=== PATIENT | female | born 1940 | race Caucasian/White ===

== ENCOUNTER 2016-05-17 23:07 | Emergency (ER) | payer MEDICARE, OTHER | END 2016-05-18 01:05 | disposition home or self-care (01) | DX: I48.91 Unspecified atrial fibrillation (principal); I48.92 Unspecified atrial flutter; Z79.01 Long term (current) use of anticoagulants; I49.3 Ventricular premature depolarization ==

== ENCOUNTER 2016-07-03 08:00 | Outpatient (CLI) | payer MEDICARE, OTHER | END 2016-07-03 08:01 | disposition home or self-care (01) | DX: R19.7 Diarrhea, unspecified (principal) ==

== ENCOUNTER 2016-07-15 10:30 | Observation (INO) | payer MEDICARE, OTHER ==
[2016-07-15] MEDS ORDERED: DICLOFENAC SODIUM 1% TOP PRN (14:47)
[2016-07-15] MEDS ORDERED: SODIUM CHLORIDE FLUSH 0.9% 10 ML SYRINGE IVP PRN (14:49)
[2016-07-15] MEDS ORDERED: ONDANSETRON ODT 4 MG TABLET TL PRN (14:49)
[2016-07-15] MEDS ORDERED: ACETAMINOPHEN 325 MG TABLET PO PRN (14:49)
[2016-07-15] MEDS ORDERED: BUDESONIDE 0.5 MG/2 ML NEB INH SCH (19:00)
[2016-07-15] MEDS: [UNRECOGNIZED DRUG - OTHER] INH SCH (19:00)
[2016-07-15] MEDS ORDERED: FORMOTEROL FUMARATE NEB 20 MCG/2 ML INH SCH (19:00)
[2016-07-15] MEDS ORDERED: GABAPENTIN 100 MG CAPSULE PO SCH (21:00)
[2016-07-15] MEDS ORDERED: DABIGATRAN 75 MG CAPSULE PO SCH (21:00)
[2016-07-15] MEDS: DABIGATRAN 150 MG CAPSULE PO SCH (21:38)
[2016-07-15] MEDS: cefTRIAXone 1 GM in SODIUM CHLORIDE 0.9% MINIBAG 100 ML IV SCH (23:01)
[2016-07-15] MEDS: SODIUM CHLORIDE FLUSH 0.9% 10 ML SYRINGE IVP SCH (23:07)
[2016-07-16] MEDS: SODIUM CHLORIDE FLUSH 0.9% 10 ML SYRINGE IVP SCH ×2 (05:17→13:09)
[2016-07-16] MEDS: cefTRIAXone 1 GM in SODIUM CHLORIDE 0.9% MINIBAG 100 ML IV SCH (08:39)
[2016-07-16] MEDS: [UNRECOGNIZED DRUG - OTHER] INH SCH (08:43)
[2016-07-16] MEDS: DABIGATRAN 150 MG CAPSULE PO SCH (08:43)
[2016-07-16] MEDS ORDERED: diltiaZEM CD 120 MG CAPSULE PO SCH ×2 (09:00)
[2016-07-16] MEDS ORDERED: POLYETHYLENE GLYCOL 3350 17 GM PACKET PO SCH (09:00)
[2016-07-16] MEDS ORDERED: cefTRIAXone 1 GM in SODIUM CHLORIDE 0.9% MINIBAG 100 ML IV SCH ×2 (09:00→22:00)
[2016-07-16] MEDS ORDERED: guaiFENesin 100 MG/5 ML UDC PO PRN (09:49)
[2016-07-16] MEDS ORDERED: GADOBUTROL 7.5 MMOL/7.5 ML VIAL IVP ONE (11:03)
== END 2016-07-16 14:10 | disposition home or self-care (01) ==
DX: R47.01 Aphasia (principal); I48.2 Chronic atrial fibrillation; I49.3 Ventricular premature depolarization; R82.99 Other abnormal findings in urine; J47.9 Bronchiectasis, uncomplicated; J45.909 Unspecified asthma, uncomplicated; R63.4 Abnormal weight loss; Z79.01 Long term (current) use of anticoagulants; Z68.23 Body mass index [BMI] 23.0-23.9, adult; Z86.73 Personal history of transient ischemic attack (TIA), and cerebral infarction without residual deficits; Z79.899 Other long term (current) drug therapy
CPT/HCPCS: 36415; 70450; 70544; 70549; 70551; 80048; 80061; 81001; 85025; 85610; 85730; 87077; 87086; 87181; 93005; 93010; 93306; 96365; 96366; 99284; 99285; A9270; A9585; G0378

== ENCOUNTER 2016-12-27 08:00 | Outpatient (CLI) | payer MEDICARE, OTHER | END 2016-12-27 08:01 | disposition home or self-care (01) | LOC: LAB.R 08:00 | PROVIDERS: ATTEND Family Medicine | DX: N39.0 Urinary tract infection, site not specified (principal) | CPT/HCPCS: 87086 ==

== ENCOUNTER 2017-02-04 10:00 | Outpatient (CLI) | payer MEDICARE, OTHER | END 2017-02-04 10:01 | disposition home or self-care (01) | LOC: LAB.WCP 10:00 | PROVIDERS: ATTEND Family Medicine | DX: N39.0 Urinary tract infection, site not specified (principal) | CPT/HCPCS: 87077; 87086 ==

== ENCOUNTER 2017-02-23 08:09 | Emergency (ER) | payer MEDICARE, OTHER ==
[2017-02-23] MEDS: SODIUM CHLORIDE 0.9% 1,000 ML IV ONE (08:30)
[2017-02-23 08:40] LABS: BASOPHILS % (AUTO) 0.6 %; EOSINOPHILS # (AUTO) 0.1 10^3/uL (0.0-0.7); EOSINOPHILS % (AUTO) 1.7 %; HCT - HEMATOCRIT 41.4 % (37.0-47.0); HGB - HEMOGLOBIN 13.9 g/dL (12.0-16.0); LYMPHOCYTES # (AUTO) 2.5 10^3/uL (1.5-3.5); LYMPHOCYTES % (AUTO) 38.8 %; MEAN CORPUSCULAR HEMOGLOBIN 33.1 pg (27.0-31.0); MEAN CORPUSCULAR HGB CONC 33.6 g/dL (32.0-36.0); MEAN CORPUSCULAR VOLUME 98.5 fL (81.0-99.0); MEAN PLATELET VOLUME 7.9 fL (7.9-10.8); MONOCYTES # (AUTO) 0.7 10^3/uL (0.0-1.0); MONOCYTES % (AUTO) 11.1 %; NEUTROPHILS # (AUTO) 3.1 10^3/uL (1.5-6.6); NEUTROPHILS % (AUTO) 47.8 %; RED BLOOD COUNT 4.21 10^6/uL (4.20-5.40); RED CELL DISTRIBUTION WIDTH 13.5 % (12.0-15.0); UNCORRECTED WHITE BLOOD COUNT 6.5 x10^3/uL; WHITE BLOOD COUNT 6.5 x10^3/uL (4.8-10.8)
--- NOTE | 2017-02-23 08:54 | ED Physician Documentation ---
PD HPI FOCAL NEURO - Stated complaint Stated Complaint: CONFUSION - Chief complaint Chief Complaint: Neuro - History obtained from History obtained from: Patient, Family - History of Present Illness Timing - onset: Enter time (729), Today Timing - duration: Minutes Timing - details: Abrupt onset, Now resolved Severity of deficit: Moderate Weakness: No: Face, Arm, Hand, Leg, Foot, Right, Left Numbness: No: Face, Arm, Hand, Leg, Foot, Right, Left Associated symptoms: No: Headache, Nausea / vomiting, Seizure, Syncope, Fall, Head injury, Chest pain, Neck pain, Back pain, Fever Contributing factors: positive: Anticoagulated Baseline status: positive: A&OX3, ambulatory, indep Similar symptoms before: Diagnosis (complicated migraine) Recently seen: Clinic (The patient has been treated for UTI and for bronchietiasis in the past month.) - Additional information Additional information: 76-year-old female with a history of atrial fibrillation and complicated migraine has developed symptoms this morning of acute expressive aphasia. Her symptoms have resolved on arrival to the emergency department. Her symptoms started abruptly at 730 this morning. She has had these episodes previously last up to 2 hours and she has had prior admission for TIA related to this. She has had similar symptoms for the past 12 years and has been diagnosed with complicated migraine. She has been recently ill with bronchiectasis and with a urinary tract infection she is finished courses of antibiotics for both of those illnesses and states that she did not feel ill yesterday. Review of Systems Constitutional: denies: Fever, Chills Eyes: denies: Decreased vision Ears: denies: Ear pain Nose: denies: Rhinorrhea / runny nose, Congestion Throat: denies: Sore throat Cardiac: denies: Chest pain / pressure, Palpitations Respiratory: reports: Cough. denies: Dyspnea GI: denies: Abdominal Pain, Nausea, Vomiting : denies: Dysuria, Frequency Musculoskeletal: denies: Neck pain, Back pain, Extremity pain Neurologic: reports: Difficulty speaking. denies: Generalized weakness, Focal weakness, Numbness, Syncope, Seizure, Confused, Altered mental status, Headache , Head injury, LOC PD PAST MEDICAL HISTORY - Past Medical History Past Medical History: Yes Cardiovascular: None Respiratory: Asthma Neuro: TIA, Headache/migraine Endocrine/Autoimmune: None GI: None LEATHER TOOLER: None : None HEENT: None Psych: None Musculoskeletal: Osteoarthritis Derm: None - Past Surgical History Past Surgical History: Yes /LEATHER TOOLER: Hysterectomy HEENT: Tonsil/Adenoidectomy - Present Medications Home Medications: Ambulatory Orders Medication Instructions Recorded Confirmed Diclofenac Sodium [Voltaren] 5 g TP QID PRN 01/26/13 07/15/16 Gabapentin 100 - 300 mg PO QPM 02/13/14 07/15/16 Dabigatran Etexilate Mesylate 150 mg PO BID 05/17/16 07/15/16 [Pradaxa] Budesonide/Formoterol Fumarate 2 puffs INH BID 07/15/16 07/15/16 [Symbicort 160-4.5 Mcg Inhaler] Diltiazem HCl [Cartia Xt] 120 mg PO DAILY 07/15/16 07/15/16 Cephalexin [Keflex] 500 mg PO BID #4 capsule 07/16/16 - Allergies Allergies/Adverse Reactions: Allergies Allergy/AdvReac Type Severity Reaction Status Date / Time No Known Drug Allergies Allergy Verified 02/23/17 08:23 - Social History Does the pt smoke?: No Smoking Status: Never smoker Does the pt drink ETOH?: Yes Does the pt have substance abuse?: No - Immunizations Immunizations are current?: Yes - POLST Patient has POLST: Yes PD ED PE NORMAL - Vitals Vital signs reviewed: Yes (hypertension) - General General: Alert and oriented X 3, No acute distress, Well developed/nourished - HEENT HEENT: Atraumatic, PERRL, EOMI, Ears normal, Pharynx benign, Dentition benign, Other (dry mucous membranes) - Neck Neck: Supple, no meningeal sign, No bony TTP - Cardiac Cardiac: Other (irregularly irregular rate and rhythm) - Respiratory Respiratory: No respiratory distress, Clear bilaterally - Abdomen Abdomen: Soft, Non tender - Back Back: No CVA TTP, No spinal TTP - Derm Derm: Normal color, Warm and dry, No rash - Extremities Extremities: No deformity, No edema - Neuro Neuro: Alert and oriented X 3, director of education 2-12 intact, No motor deficit, No sensory deficit, Normal speech Eye Opening: Spontaneous Motor: Obeys Commands Verbal: Oriented GCS Score: 15 - Psych Psych: Normal mood, Normal affect NIHSS - Time Time: 08:30 - Level of Consciousness Level of consciousness: (0) Alert, Keenly responsive LOC Questions: (0) Answers both Q's correct LOC Commands: (0) Performs both correctly - Gaze Best Gaze: (0) Normal - Visual Visual: (0) No loss - Facial Palsy Facial Palsy: (0) Normal, symmetrical movement - Motor Arms (both separate) Motor Arm (right): (0) No drift Motor Arm (left): (0) No drift - Motor Legs (both separate) Motor Leg (right): (0) No drift Motor Leg (left): (0) No drift - Limb Ataxia Limb Ataxia: (0) Absent - Sensory Sensory: (0) Normal - Best Language Best Language: (0) No aphasia - Dysarthria Dysarthria: (0) Normal - Extinction and Inattention (formally neg Extinction and inattention: (0) No abnormality - Total Score/Results Total Score/Result: 0 Results - Vitals Vitals: Vital Signs - 24 hr 02/23/17 08:21 Temperature 36.0 C L Heart Rate 80 Respiratory 16 Rate Blood Pressure 129/85 H O2 Saturation 100 Oxygen O2 Source Room air - EKG (time done) 0821 Rate: Rate (enter#) (82) Rhythm: Other (irregular sinus) QRS: Low voltage Compare to prior EKG: Changed from prior EKG (SPT 07-15-16 rate has decreased. ) Computer interpretation: Agree with computer - Labs Labs: Laboratory Tests 02/23/17 02/23/17 02/23/17 08:20 08:20 08:20 WBC 6.5 RBC 4.21 Hgb 13.9 Hct 41.4 MCV 98.5 MCH 33.1 H MCHC 33.6 RDW 13.5 Plt Count 220 MPV 7.9 Neut # 3.1 Lymph # 2.5 [place] # 0.7 Eos # 0.1 Baso # 0.0 Absolute Nucleated RBC 0.00 Nucleated RBC % 0.0 Sodium 137 Potassium 4.0 Chloride 102 Carbon Dioxide 25 Anion Gap 10.0 BUN 16 Creatinine 0.9 Estimated GFR (MDRD) 61 L Glucose 127 H Calcium 9.4 Total Bilirubin 0.8 AST 28 ALT 25 Alkaline Phosphatase 45 Troponin I < 0.04 Total Protein 7.1 Albumin 4.0 Globulin 3.1 Albumin/Globulin Ratio 1.3 Lipase 41 Urine Color Urine Clarity Urine pH Ur Specific [place] Urine Protein Urine Glucose (UA) Urine Ketones Urine Occult Blood Urine Nitrite Urine Bilirubin Urine Urobilinogen Ur Leukocyte Esterase Urine RBC Urine WBC Ur Squamous Epith Cells Urine Bacteria Ur Microscopic Review Urine Culture Comments 02/23/17 09:50 WBC RBC Hgb Hct MCV MCH MCHC RDW Plt Count MPV Neut # Lymph # [place] # Eos # Baso # Absolute Nucleated RBC Nucleated RBC % Sodium Potassium Chloride Carbon Dioxide Anion Gap BUN Creatinine Estimated GFR (MDRD) Glucose Calcium Total Bilirubin AST ALT Alkaline Phosphatase Troponin I Total Protein Albumin Globulin Albumin/Globulin Ratio Lipase Urine Color LT. YELLOW Urine Clarity CLEAR Urine pH 6.5 Ur Specific [place] <=1.005 Urine Protein NEGATIVE Urine Glucose (UA) NEGATIVE Urine Ketones NEGATIVE Urine Occult Blood SMALL H Urine Nitrite NEGATIVE Urine Bilirubin NEGATIVE Urine Urobilinogen 0.2 (NORMAL) Ur Leukocyte Esterase TRACE H Urine RBC 0-5 Urine WBC 0-3 Ur Squamous Epith Cells RARE Squamous Urine Bacteria Few Ur Microscopic Review INDICATED Urine Culture Comments INDICATED - Rads (name of study) CT head without Radiology: Prelim report reviewed (Impression: Negative head CT.), EMP read indepedently, See rad report Procedures - IVC sono (time) 0845 Bedside IVC sono: IVC measures (cm) (1.24), IVC collapsed c insp (cm) (complete) , Dehydration (mild est 1 liter down.) PD MEDICAL DECISION MAKING - ED course Complexity details: reviewed old records, reviewed results, re-evaluated patient , considered differential, d/w patient, d/w family ED course: 76 y/o female with a history of complicated migraine has had an episode of aphasia this morning that appears resolved now. She is found to be dehydrated and his hydrated here in the ED with saline by vein. She has no recurrence of symptoms feels normal and has normal workup. She is diagnosed with complicated migraine. Departure - Departure Disposition: 01 Home, Self Care Clinical Impression: Complicated migraine Condition: Stable Instructions: ED Headache Migraine Follow-Up: Krystian Bush DO [Primary Care Provider] -
[2017-02-23 08:57] LABS: ALBUMIN/GLOBULIN RATIO 1.3 (1.0-2.2); BILIRUBIN,TOTAL 0.8 mg/dL (0.2-1.0); CALCIUM 9.4 mg/dL (8.5-10.3); CREATININE 0.9 mg/dL (0.4-1.0); TOTAL PROTEIN 7.1 g/dL (6.7-8.2)
--- NOTE | 2017-02-23 09:48 | CT Preliminary Report ---
Exam: CT HEAD W/O IMPRESSION: Negative head CT. [facility] SITE ID: [id number]
--- NOTE | 2017-02-23 09:50 | CT Report ---
EXAM: CT HEAD EXAM DATE: 02/23/2017 09:34 AM. CLINICAL HISTORY: Aphasia on anticoagulant. COMPARISON: 07/16/2016 MRI brain, 07/15/[address] TECHNIQUE: Multiaxial CT images were obtained from the foramen magnum to the vertex. Reformats: Coron al. IV contrast: None. In accordance with CT protocol optimization, one or more of the following dose reduction techniques w ere utilized for this exam: automated exposure control, adjustment of mA and/or KV based on patient s ize, or use of iterative reconstructive technique. FINDINGS: Parenchyma: No intraparenchymal hemorrhage. No evidence of mass, midline shift, or CT findings of inf arction. Clifton-white differentiation is distinct. Extraaxial Spaces: Normal for age. No subdural or epidural collections identified. Ventricles: Normal in size and position. Sinuses and Orbits: Imaged paranasal sinuses, orbits, and mastoids show no significant abnormality. Bones: No evidence of fracture or calvarial defect. Other: No acute findings or significant interval change compared to the 07/15/[address] IMPRESSION: Negative head CT. [facility] Referring Provider Line: [phone] SITE ID: [id number]
[2017-02-23 10:16] LABS: BILIRUBIN,URINE NEGATIVE (NEGATIVE); PH,URINE 6.5 PH (5.0-7.5)
[2017-02-23 10:24] LABS: UA w/ MICROSCOPIC CHARGE YES
[2017-02-23 10:25] LABS: UR CULTURE IF IND INDICATED; WBC,URINE 0-3 /HPF (0-5)
[2017-02-23 11:16] VITALS: BP 138/78
== END 2017-02-23 11:23 | disposition home or self-care (01) ==
LOC: ED 08:09
DX: G43.109 Migraine with aura, not intractable, without status migrainosus (principal); E86.0 Dehydration; R94.31 Abnormal electrocardiogram [ECG] [EKG]; Z86.73 Personal history of transient ischemic attack (TIA), and cerebral infarction without residual deficits
CPT/HCPCS: 36415; 70450; 80053; 81001; 81003; 83690; 84484; 85025; 87077; 87086; 93005; 96360; 99284

== ENCOUNTER 2017-10-25 07:23 | Outpatient (CLI) | payer MEDICARE, OTHER ==
[2017-10-25 08:08] LABS: BASOPHILS # (AUTO) 0.1 10^3/uL (0.0-0.1); BASOPHILS % (AUTO) 0.9 %; EOSINOPHILS # (AUTO) 0.2 10^3/uL (0.0-0.7); EOSINOPHILS % (AUTO) 3.8 %; HGB - HEMOGLOBIN 13.9 g/dL (12.0-16.0); LYMPHOCYTES # (AUTO) 2.2 10^3/uL (1.5-3.5); LYMPHOCYTES % (AUTO) 34.2 %; MEAN CORPUSCULAR HEMOGLOBIN 33.2 pg (27.0-31.0); MEAN CORPUSCULAR HGB CONC 33.7 g/dL (32.0-36.0); MEAN CORPUSCULAR VOLUME 98.5 fL (81.0-99.0); MONOCYTES # (AUTO) 0.5 10^3/uL (0.0-1.0); MONOCYTES % (AUTO) 8.1 %; NEUTROPHILS # (AUTO) 3.4 10^3/uL (1.5-6.6); PLT - PLATELET COUNT 251 10^3/uL (130-450); RED BLOOD COUNT 4.19 10^6/uL (4.20-5.40); RED CELL DISTRIBUTION WIDTH 12.3 % (12.0-15.0); WHITE BLOOD COUNT 6.4 x10^3/uL (4.8-10.8)
[2017-10-25 08:41] LABS: HB2 TOTAL 14.9 g/dL; HEMOGLOBIN A1C 0.49 g/dL; HEMOGLOBIN A1C % 5.2 % (4.6-6.2)
[2017-10-25 09:06] LABS: ALBUMIN 3.7 g/dL (3.2-5.5); ALBUMIN/GLOBULIN RATIO 1.1 (1.0-2.2); ALKALINE PHOSPHATASE 47 IU/L (42-121); ALT ALANINE AMINOTRANSFERASE 21 IU/L (10-60); AST ASPARTATE AMINOTRANSFERASE 23 IU/L (10-42); BUN - BLOOD UREA NITROGEN 15 mg/dL (6-20); CALCIUM 9.1 mg/dL (8.5-10.3); CARBON DIOXIDE - CO2 28 mmol/L (21-32); CHLORIDE 103 mmol/L (101-111); CHOL/HDL RATIO 2.9 (<4.4); CHOLESTEROL 214 mg/dL; CREATININE 0.7 mg/dL (0.4-1.0); GFR - MDRD 81 (>89); GLUCOSE 99 mg/dL (70-100); HDL CHOLESTEROL 74 mg/dL; LDL CHOLESTEROL,CALCULATED 121 mg/dL; LDL/HDL RATIO 1.6 (<4.4); SODIUM 136 mmol/L (135-145); VLDL CHOLESTEROL 19 mg/dL
== END 2017-10-25 07:24 | disposition home or self-care (01) ==
LOC: LAB 07:23
PROVIDERS: ATTEND Family Medicine
DX: Z00.00 Encounter for general adult medical examination without abnormal findings (principal); R73.01 Impaired fasting glucose
CPT/HCPCS: 36415; 80053; 80061; 83036; 83721; 84443; 85025

== ENCOUNTER 2018-05-05 12:49 | Outpatient (CLI) | payer MEDICARE, OTHER ==
--- NOTE | 2018-05-08 09:27 | DEXA Report ---
Reason: BONE DISORDER Procedure Date: 05/05/2018 Accession Number: [id number] / [id number] Procedure: DEX - Dexa Spine and/or Hip CPT Code: FULL RESULT: EXAM: Dexa Spine and/or Hip DATE: 05/05/2018 2:01 PM CLINICAL HISTORY: BONE DISORDER TECHNIQUE: Dual energy x-ray absorptiometry (DXA) was performed on a [facility]. Regions measured are the AP Spine, femoral neck, and if needed forearm. COMPARISON: 03/26/2016. In accordance with the International Society for Clinical Densitometry (ISCD) guidelines, data from previous exams may be reanalyzed using current recommendations and techniques. This is done to allow a more accurate basis for comparison with the current study. FINDINGS: The data for the lumbar spine is as follows: BMD (g/cm/cm) T-SCORE Z-SCORE REGION L1 0.837 -2.4 -0.7 L2 0.983 -1.8 -0.1 L3 1.123 -0.6 1.1 L4 1.082 -1.0 0.7 TOTAL 1.015 -1.4 0.3 NOTE: All evaluable vertebrae are used for classification The data for the hip is as follows: BMD (g/cm/cm) T-SCORE Z-SCORE REGION Neck 0.945 -0.7 1.4 TOTAL 0.741 -2.1 -0.2 NOTE: The femoral neck or total proximal femur, whichever is lowest, is used for classification. DXA RESULTS SUMMARY: Spine SCAN DATE AGE BMD CHANGE VS CHANGE VS PREVIOUS PREVIOUS % [birth year]05[birth year]2018 [age] 1.015 0.044* 4.5* 03/26/2016 [age] 0.971 * Denotes significant change at the 95% confidence level. Denotes dissimilar scan types or analysis methods. DXA RESULTS SUMMARY: Hip SCAN DATE AGE BMD CHANGE VS CHANGE VS PREVIOUS PREVIOUS % [birth year]05[birth year]2018 78.0 0.741 -0.064* -8.0* 03[birth year]26/2016 [age] 0.805 * Denotes significant change at the 95% confidence level. Denotes dissimilar scan types or analysis methods. IMPRESSION: THE WHO CLASSIFICATION BASED ON THE INTERNATIONAL REFERENCE STANDARD IS OSTEOPENIA. THE FRACTURE RISK IS INCREASED. RECOMMENDATION: Patients with diagnosis of osteoporosis or osteopenia should have regular bone mineral density assessment. For those eligible for Medicare, routine testing is allowed once every 2 years. Testing frequency can be increased for patients who have rapidly progressing disease or for those who are receiving medical therapy to restore bone mass. COMMENT: World Health Organization (WHO) definitions for osteoporosis and osteopenia: NORMAL BMD: T-score at -1.0 or higher, fracture risk is low OSTEOPENIA BMD: T-score between -1.0 and -2.5, fracture risk is increased. OSTEOPOROSIS BMD: T-score at -2.5 or lower, fracture risk is high. National Osteoporosis Foundation recommends: 1. Obtain adequate dietary calcium (at least 1200 mg per day) and vitamin D (400-800 international units per day). 2. Participate, as appropriate, in regular weightbearing and muscle-strengthening exercise. 3. Avoid tobacco use and reduce alcohol and caffeine intake. 4. For more detailed information see the website at www.NOF.org.
== END 2018-05-05 12:50 | disposition home or self-care (01) ==
LOC: DI 12:49
PROVIDERS: ATTEND Family Medicine
DX: M85.89 Other specified disorders of bone density and structure, multiple sites (principal)
CPT/HCPCS: 77080

== ENCOUNTER 2018-05-05 12:50 | Outpatient (CLI) | payer MEDICARE, OTHER ==
--- NOTE | 2018-05-08 08:54 | Mammography Report ---
Reason: SCREENING MAMMOGRAM Procedure Date: 05/05/2018 Accession Number: [id number] / [id number] Procedure: OBEY - Screening Mammo Impl w/Chris CPT Code: FULL RESULT: EXAM: Screening Mammo Impl w/Chris DATE: 05/05/2018 12:50 PM CLINICAL HISTORY: Screening encounter. History of bilateral breast implants. TECHNIQUE: Bilateral CC and MLO views were obtained in standard and implant displaced fashion. COMPARISON: 03/26/2016 through 02/18/2009. FINDINGS: The breasts demonstrate diffuse fatty replacement bilaterally. Bilateral saline implants remain intact. No suspicious masses, clustered microcalcifications, or regions of architectural distortion are identified. IMPRESSION: Benign findings RECOMMENDATION: Routine annual screening unless otherwise clinically indicated. BIRADS CATEGORY 2: Benign findings STANDARD QUALIFYING STATEMENTS: 1. This examination was not reviewed with the aid of Computer-Aided Detection (CAD). 2. A negative or benign imaging report should not preclude biopsy if clinically suspicious findings are present. 3. Dense breasts may obscure an underlying neoplasm. 4. This examination was reviewed with the aid of 3D breast imaging (tomosynthesis).
== END 2018-05-05 12:51 | disposition home or self-care (01) ==
LOC: DI 12:50
DX: Z12.31 Encounter for screening mammogram for malignant neoplasm of breast (principal); Z98.82 Breast implant status
CPT/HCPCS: 77063; 77067

== ENCOUNTER 2018-06-19 11:34 | Outpatient (CLI) | payer MEDICARE, OTHER ==
--- NOTE | 2018-06-19 14:52 | XRAY Report ---
Reason: HIP PAIN, LEFT Procedure Date: 06/19/2018 Accession Number: [id number] / [id number] Procedure: WCP - Hip w/Pelvis 2-3V LT CPT Code: FULL RESULT: EXAM: LEFT HIP RADIOGRAPHY EXAM DATE: 06/19/2018 11:49 AM. CLINICAL HISTORY: Chronic left hip pain. No known injury. COMPARISON: None. TECHNIQUE: 2 views. FINDINGS: Bones: Normal. No fractures or bone lesion. Joints: There is asymmetric degenerative joint space narrowing of the left hip. There is mild subchondral sclerosis of the weightbearing surface of the acetabulum and moderate marginal osteophyte of the femoral head. Soft Tissues: Normal. No soft tissue swelling. Incidental note is made of a pessary device overlying the midline. 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 No fracture appreciated. [facility]
== END 2018-06-19 11:35 | disposition home or self-care (01) ==
LOC: DI.WCP 11:34
PROVIDERS: ATTEND Family Medicine
DX: M16.12 Unilateral primary osteoarthritis, left hip (principal)

== ENCOUNTER 2018-06-29 09:46 | Emergency (ER) | payer MEDICARE, OTHER ==
--- NOTE | 2018-06-29 10:10 | ED Physician Documentation ---
History of Present Illness - Stated complaint Stated Complaint: VOMITING/WEAKNESS - Chief complaint Chief Complaint: General - History obtained from History obtained from: Patient - History of Present Illness Timing: Today - Additonal information Additional information: 78-year-old female with a feeling of uneasiness that she has had yesterday and today. She indicates that she has undergone a lot of stress in the past 2 months when her brother in April. She has had difficulty since that time. She has a prior history of urinary tract infection she is not specifically having symptoms now. Review of Systems Constitutional: reports: Chills, Fatigue. denies: Fever Eyes: denies: Decreased vision Ears: denies: Ear pain Nose: denies: Rhinorrhea / runny nose, Congestion Throat: denies: Sore throat Cardiac: denies: Chest pain / pressure, Palpitations Respiratory: denies: Dyspnea, Cough GI: reports: Nausea. denies: Abdominal Pain, Vomiting, Constipation, Diarrhea : denies: Dysuria, Frequency Skin: denies: Rash Musculoskeletal: denies: Neck pain, Back pain, Extremity pain Neurologic: denies: Generalized weakness, Focal weakness, Numbness PD PAST MEDICAL HISTORY - Past Medical History Cardiovascular: None Respiratory: Asthma Endocrine/Autoimmune: None GI: None POLICEWOMAN: None : None HEENT: None Psych: None Musculoskeletal: Osteoarthritis Derm: None - Past Surgical History Past Surgical History: Yes /POLICEWOMAN: Hysterectomy HEENT: Tonsil/Adenoidectomy - Present Medications Home Medications: Ambulatory Orders Medication Instructions Recorded Confirmed Diclofenac Sodium [Voltaren] 5 g TP QID PRN 01/26/13 07/15/16 Gabapentin 100 - 300 mg PO QPM 02/13/14 07/15/16 Dabigatran Etexilate Mesylate 150 mg PO BID 05/17/16 07/15/16 [Pradaxa] Budesonide/Formoterol Fumarate 2 puffs INH BID 07/15/16 07/15/16 [Symbicort 160-4.5 Mcg Inhaler] Diltiazem HCl [Cartia Xt] 120 mg PO DAILY 07/15/16 07/15/16 Cephalexin [Keflex] 500 mg PO BID #4 capsule 07/16/16 Nitrofurantoin Monohyd/M-Cryst 100 mg PO BID #10 capsule 06/29/18 [Macrobid 100 mg Capsule] traZODone [Desyrel] 50 mg PO HS #30 tablet 06/29/18 - Allergies Allergies/Adverse Reactions: Allergies Allergy/AdvReac Type Severity Reaction Status Date / Time No Known Drug Allergies Allergy Verified 06/29/18 10:02 - Social History Does the pt smoke?: No Smoking Status: Never smoker Does the pt drink ETOH?: Yes Does the pt have substance abuse?: No - Immunizations Immunizations are current?: Yes - POLST Patient has POLST: Yes PD ED PE NORMAL - Vitals Vital signs reviewed: Yes - General General: Alert and oriented X 3, Well developed/nourished, Other (The patient has some emotional lability) - HEENT HEENT: Atraumatic, PERRL, EOMI, Other (dry mucous membranes ) - Neck Neck: Supple, no meningeal sign, No bony TTP - Cardiac Cardiac: RRR, Other (2/6 holosystolic murmer at LSB radiating across the chest is best heard from the back. 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 ) Computer interpretation: Agree with computer - Labs Labs: Laboratory Tests 06/29/18 06/29/18 06/29/18 10:30 10:30 10:30 WBC 5.6 RBC 4.15 L Hgb 13.8 Hct 40.5 MCV 97.6 MCH 33.2 H MCHC 34.1 RDW 13.0 Plt Count 247 MPV 8.3 Neut # (Auto) 3.3 Lymph # (Auto) 1.7 [place] # (Auto) 0.5 Eos # (Auto) 0.1 Baso # (Auto) 0.0 Absolute Nucleated RBC 0.00 Nucleated RBC % 0.1 Sodium 135 Potassium 3.8 Chloride 104 Carbon Dioxide 23 Anion Gap 8.0 BUN 13 Creatinine 0.7 Estimated GFR (MDRD) 81 L Glucose 136 H Calcium 9.3 Total Bilirubin 1.0 AST 29 ALT 19 Alkaline Phosphatase 44 Troponin I < 0.04 Total Protein 7.0 Albumin 4.1 Globulin 2.9 Albumin/Globulin Ratio 1.4 Lipase 39 Urine Color Urine Clarity Urine pH Ur Specific [place] Urine Protein Urine Glucose (UA) Urine Ketones Urine Occult Blood Urine Nitrite Urine Bilirubin Urine Urobilinogen Ur Leukocyte Esterase Urine RBC Urine WBC Ur Squamous Epith Cells Urine Bacteria Ur Microscopic Review Urine Culture Comments 06/29/18 11:53 WBC RBC Hgb Hct MCV MCH MCHC RDW Plt Count MPV Neut # (Auto) Lymph # (Auto) [place] # (Auto) Eos # (Auto) Baso # (Auto) Absolute Nucleated RBC Nucleated RBC % Sodium Potassium Chloride Carbon Dioxide Anion Gap BUN Creatinine Estimated GFR (MDRD) Glucose Calcium Total Bilirubin AST ALT Alkaline Phosphatase Troponin I Total Protein Albumin Globulin Albumin/Globulin Ratio Lipase Urine Color YELLOW Urine Clarity CLEAR Urine pH 7.5 Ur Specific [place] 1.010 Urine Protein NEGATIVE Urine Glucose (UA) NEGATIVE Urine Ketones NEGATIVE Urine Occult Blood TRACE-INTA Urine Nitrite POSITIVE H Urine Bilirubin NEGATIVE Urine Urobilinogen 0.2 (NORMAL) Ur Leukocyte Esterase SMALL H Urine RBC 0-5 Urine WBC >25 H Ur Squamous Epith Cells NONE SEEN Urine Bacteria Many H Ur Microscopic Review INDICATED Urine Culture Comments INDICATED - Rads (name of study) chest 2 view Radiology: Prelim report reviewed (Impression: 1. Mild cardiomegaly, as before. 2. Lungs are clear.), EMP read indepedently, See rad report Procedures - IVC sono (time) 1010 Bedside IVC sono: IVC measures (cm) (1.27), IVC collapsed c insp (cm) (complete), Dehydration (est 500ml deficit) PD MEDICAL DECISION MAKING - ED course Complexity details: reviewed results, re-evaluated patient, considered differential, d/w patient, d/w family ED course: 78-year-old female with a feeling of uneasiness has urinary tract infection on evaluation of the urinary sediment and the urine specimen looks like a good uncontaminated specimen the base the grade for culture. She is administered intravenous saline and Rocephin. She has discussed her difficulty with sleep and would like to try some trazodone after discussion of its benefits for sleep. Departure - Departure Disposition: 01 Home, Self Care Clinical Impression: Urinary tract infection Qualifiers: Urinary tract infection type: acute cystitis Hematuria presence: without hematuria Qualified Code(s): N30.00 - Acute cystitis without hematuria Insomnia Qualifiers: Insomnia type: other insomnia Qualified Code(s): G47.09 - Other insomnia Condition: Stable Instructions: ED UTI Cystitis Female, ED Insomnia, ED Stress React Follow-Up: Krystian Bush DO [Primary Care Provider] - Prescriptions: Nitrofurantoin Monohyd/M-Cryst [Macrobid 100 mg Capsule] 100 mg PO BID #10 capsule traZODone [Desyrel] 50 mg PO HS #30 tablet
[2018-06-29] MEDS ORDERED: SODIUM CHLORIDE 0.9% 500 ML IV ONE (10:40)
[2018-06-29 10:59] LABS: BASOPHILS % (AUTO) 0.9 %; EOSINOPHILS # (AUTO) 0.1 10^3/uL (0.0-0.7); EOSINOPHILS % (AUTO) 1.6 %; HGB - HEMOGLOBIN 13.8 g/dL (12.0-16.0); LYMPHOCYTES # (AUTO) 1.7 10^3/uL (1.5-3.5); LYMPHOCYTES % (AUTO) 29.6 %; MEAN CORPUSCULAR HEMOGLOBIN 33.2 pg (27.0-31.0); MEAN CORPUSCULAR HGB CONC 34.1 g/dL (32.0-36.0); MEAN CORPUSCULAR VOLUME 97.6 fL (81.0-99.0); MEAN PLATELET VOLUME 8.3 fL (7.9-10.8); MONOCYTES # (AUTO) 0.5 10^3/uL (0.0-1.0); MONOCYTES % (AUTO) 8.9 %; NEUTROPHILS # (AUTO) 3.3 10^3/uL (1.5-6.6); PLT - PLATELET COUNT 247 10^3/uL (130-450); RED BLOOD COUNT 4.15 10^6/uL (4.20-5.40); WHITE BLOOD COUNT 5.6 x10^3/uL (4.8-10.8)
[2018-06-29 11:09] LABS: ALBUMIN 4.1 g/dL (3.2-5.5); ALBUMIN/GLOBULIN RATIO 1.4 (1.0-2.2); CALCIUM 9.3 mg/dL (8.5-10.3); CREATININE 0.7 mg/dL (0.4-1.0)
--- NOTE | 2018-06-29 11:15 | XRAY Report ---
Reason: chest pain Procedure Date: 06/29/2018 Accession Number: [id number] / [id number] Procedure: XR - Chest 1 View X-Ray CPT Code: 14361 FULL RESULT: EXAM: CHEST RADIOGRAPHY EXAM DATE: 06/29/2018 10:52 AM. CLINICAL HISTORY: Chest pain. COMPARISON: CHEST 2 VIEW PA/LAT 05/17/2016 11:36 PM. TECHNIQUE: Upright AP view. FINDINGS: Lungs/Pleura: No focal opacities evident. No pleural effusion. No pneumothorax. Mediastinum: Mild cardiomegaly, as before. Other: Bilateral breast implants. IMPRESSION: 1. Mild cardiomegaly, as before. 2. Lungs are clear. [facility]
[2018-06-29 12:01] LABS: BILIRUBIN,URINE NEGATIVE (NEGATIVE); GLUCOSE, URINE (UA) NEGATIVE (NEGATIVE); KETONES,URINE (UA) NEGATIVE (NEGATIVE); LEUKOCYTE ESTERASE, URINE SMALL (NEGATIVE); NITRITE,URINE POSITIVE (NEGATIVE); OCCULT BLOOD,URINE TRACE-INTA (NEGATIVE); PH,URINE 7.5 PH (5.0-7.5); PROTEIN,URINE NEGATIVE (NEGATIVE); UROBILINOGEN,URINE 0.2 (NORMAL) E.U./dL (NORMAL)
[2018-06-29 12:05] LABS: CLARITY,URINE CLEAR (CLEAR)
[2018-06-29 12:11] LABS: BACTERIA,URINE Many /HPF (None Seen); RBC,URINE 0-5 /HPF (0-5); SQUAMOUS EPITHELIAL CELL,UR NONE SEEN (<= Few)
[2018-06-29] MEDS ORDERED: cefTRIAXone 1 GM in SODIUM CHLORIDE 0.9% MINIBAG 100 ML IV STA (12:14)
[2018-06-29 12:52] VITALS: BP 116/70
== END 2018-06-29 13:28 | disposition home or self-care (01) ==
LOC: ED 09:46
DX: N30.00 Acute cystitis without hematuria (principal); G47.09 Other insomnia; E86.0 Dehydration; R00.0 Tachycardia, unspecified
CPT/HCPCS: 36415; 71045; 80053; 81001; 81003; 83690; 84484; 85025; 87077; 87086; 87181; 93005; 96361; 96365; 99283

== ENCOUNTER 2019-03-01 08:00 | Outpatient (CLI) | payer MEDICARE, OTHER | END 2019-03-01 23:59 | disposition home or self-care (01) | LOC: LAB.WCP 08:00 | PROVIDERS: ATTEND Family Medicine | DX: Z95.2 Presence of prosthetic heart valve (principal); I48.0 Paroxysmal atrial fibrillation; Z79.01 Long term (current) use of anticoagulants ==

== ENCOUNTER 2019-03-05 08:00 | Outpatient (CLI) | payer MEDICARE, OTHER | END 2019-03-05 23:59 | disposition home or self-care (01) | LOC: LAB.WCP 08:00 | PROVIDERS: ATTEND Family Medicine | DX: Z79.01 Long term (current) use of anticoagulants (principal); Z95.2 Presence of prosthetic heart valve; I48.0 Paroxysmal atrial fibrillation ==

== ENCOUNTER 2019-03-12 08:00 | Outpatient (CLI) | payer MEDICARE, OTHER | END 2019-03-12 23:59 | disposition home or self-care (01) | LOC: LAB.WCP 08:00 | PROVIDERS: ATTEND Family Medicine | DX: Z79.01 Long term (current) use of anticoagulants (principal); Z95.2 Presence of prosthetic heart valve ==

== ENCOUNTER 2019-03-19 08:00 | Outpatient (CLI) | payer MEDICARE, OTHER | END 2019-03-19 23:59 | disposition home or self-care (01) | LOC: LAB.WCP 08:00 | PROVIDERS: ATTEND Family Medicine | DX: I48.0 Paroxysmal atrial fibrillation (principal); Z79.01 Long term (current) use of anticoagulants ==

== ENCOUNTER 2019-03-26 08:00 | Outpatient (CLI) | payer MEDICARE, OTHER | END 2019-03-26 23:59 | disposition home or self-care (01) | LOC: LAB.WCP 08:00 | PROVIDERS: ATTEND Nurse Practitioner Family | DX: I48.0 Paroxysmal atrial fibrillation (principal); Z79.01 Long term (current) use of anticoagulants; Z95.2 Presence of prosthetic heart valve ==

== ENCOUNTER 2019-04-02 08:00 | Outpatient (CLI) | payer MEDICARE, OTHER | END 2019-04-02 23:59 | disposition home or self-care (01) | LOC: LAB.WCP 08:00 | PROVIDERS: ATTEND Family Medicine | DX: I48.0 Paroxysmal atrial fibrillation (principal); Z79.01 Long term (current) use of anticoagulants; Z95.2 Presence of prosthetic heart valve ==

== ENCOUNTER 2019-04-10 08:00 | Outpatient (CLI) | payer MEDICARE, OTHER | END 2019-04-10 23:59 | disposition home or self-care (01) | LOC: LAB.WCP 08:00 | PROVIDERS: ATTEND Nurse Practitioner Family | DX: Z79.01 Long term (current) use of anticoagulants (principal); I48.0 Paroxysmal atrial fibrillation; Z95.2 Presence of prosthetic heart valve ==

== ENCOUNTER 2019-04-24 08:00 | Outpatient (CLI) | payer MEDICARE, OTHER | END 2019-04-24 23:59 | disposition home or self-care (01) | LOC: LAB.WCP 08:00 | PROVIDERS: ATTEND Family Medicine | DX: Z79.01 Long term (current) use of anticoagulants (principal); I48.0 Paroxysmal atrial fibrillation; Z95.2 Presence of prosthetic heart valve ==

== ENCOUNTER 2019-05-11 08:00 | Outpatient (CLI) | payer MEDICARE, OTHER | END 2019-05-11 23:59 | disposition home or self-care (01) | LOC: LAB.WCP 08:00 | PROVIDERS: ATTEND Family Medicine | DX: I48.0 Paroxysmal atrial fibrillation (principal); Z79.01 Long term (current) use of anticoagulants; Z95.2 Presence of prosthetic heart valve ==

== ENCOUNTER 2019-05-22 08:00 | Outpatient (CLI) | payer MEDICARE, OTHER | END 2019-05-22 23:59 | disposition home or self-care (01) | LOC: LAB.WCP 08:00 | PROVIDERS: ATTEND Family Medicine | DX: I48.0 Paroxysmal atrial fibrillation (principal); Z79.01 Long term (current) use of anticoagulants ==

== ENCOUNTER 2019-06-04 11:53 | Outpatient (CLI) | payer MEDICARE, OTHER ==
[2019-06-04 12:39] LABS: CALCIUM 9.2 mg/dL (8.5-10.3); CREATININE 0.8 mg/dL (0.4-1.0)
== END 2019-06-04 11:54 | disposition home or self-care (01) ==
LOC: LAB 11:53
PROVIDERS: ATTEND Internal Medicine Cardiovascular Disease
DX: I50.22 Chronic systolic (congestive) heart failure (principal)
CPT/HCPCS: 36415; 80048

== ENCOUNTER 2019-06-04 19:17 | Emergency (ER) | payer MEDICARE, OTHER ==
[2019-06-04 21:00] LABS: BASOPHILS % (AUTO) 0.4 %; EOSINOPHILS # (AUTO) 0.1 10^3/uL (0.0-0.7); EOSINOPHILS % (AUTO) 1.9 %; MEAN CORPUSCULAR HEMOGLOBIN 31.9 pg (27.0-31.0); MEAN CORPUSCULAR HGB CONC 33.2 g/dL (32.0-36.0); MEAN CORPUSCULAR VOLUME 96.1 fL (81.0-99.0); MONOCYTES # (AUTO) 0.7 10^3/uL (0.0-1.0); MONOCYTES % (AUTO) 9.2 %; NEUTROPHILS # (AUTO) 4.4 10^3/uL (1.5-6.6); NEUTROPHILS % (AUTO) 60.1 %; PLT - PLATELET COUNT 280 10^3/uL (130-450); RED BLOOD COUNT 4.07 10^6/uL (4.20-5.40); RED CELL DISTRIBUTION WIDTH 12.9 % (12.0-15.0); WHITE BLOOD COUNT 7.3 x10^3/uL (4.8-10.8)
[2019-06-04 21:06] LABS: INR 2.7 (0.8-1.2); PT - PROTHROMBIN TIME 28.6 secs (9.9-12.6)
[2019-06-04 21:12] LABS: ALBUMIN/GLOBULIN RATIO 1.5 (1.0-2.2); BILIRUBIN,TOTAL 0.3 mg/dL (0.2-1.0); TOTAL PROTEIN 6.6 g/dL (6.7-8.2)
--- NOTE | 2019-06-04 21:16 | XRAY Report ---
Reason: Chest Pain Procedure Date: 06/04/2019 Accession Number: [id number] / [id number] Procedure: XR - Chest 1 View X-Ray CPT Code: 83044 Final Report FULL RESULT: EXAM: CHEST RADIOGRAPHY EXAM DATE: 06/04/2019 08:51 PM. CLINICAL HISTORY: Chest Pain. COMPARISON: CHEST 1 VIEW 06/29/2018 10:39 AM. TECHNIQUE: 1 view. FINDINGS: Lungs/Pleura: Slight prominence of perihilar interstitium, suggestive of interstitial pulmonary edema. Mild biapical pleural parenchymal scarring noted. No focal opacities evident. No pleural effusion. No pneumothorax. Mediastinum: Moderately enlarged cardiomediastinal silhouette with cardiac device. Other: Bilateral breast implants noted. IMPRESSION: Slight prominence of bilateral perihilar interstitium suggestive of interstitial pulmonary edema. Moderately enlarged cardiomediastinal silhouette. [facility]
--- NOTE | 2019-06-04 21:43 | ED Physician Documentation ---
PD HPI DYSPNEA - Stated complaint Stated Complaint: DIFFICULTY BREATHING - NEW HEART MEDS - Chief complaint Chief Complaint: Cardiac - History obtained from History obtained from: Patient, Family - History of Present Illness Timing - onset: Other (2 weeks ago) Timing - details: Gradual onset - Additional information Additional information: 79 year old female with hx of CABG, valvular replacement, chronic systolic heart failure with EF of 25%, who presents to the emergency department with fatigue over the last 2 weeks. Patient was placed on Amiodarone, Aldactone, Metoprolol by her client service executive, Dr. Gaviria about 2 weeks ago and she has been feeling tired and fatigue. She goes to cardiac rehab and has been feeling tired during her rehab. She was told by her 13 year grand-daughter that she was breathing differently and heavily tonight. She was concerned of possible interactions with her medications. She also takes sertaline for anxiety and trazadone for sleep. She denies chest pain, an increase in lower extremity edema. Review of Systems Constitutional: denies: Fever, Chills Eyes: denies: Loss of vision, Decreased vision, Photophobia Ears: denies: Loss of hearing, Ear pain, Drainage/discharge Nose: denies: Rhinorrhea / runny nose Throat: denies: Dental pain / toothache, Sore throat Cardiac: denies: Chest pain / pressure Respiratory: denies: Dyspnea, Cough GI: denies: Abdominal Pain, Nausea, Vomiting Musculoskeletal: denies: Neck pain, Back pain Neurologic: reports: Other (fatigue). denies: Focal weakness PD PAST MEDICAL HISTORY - Past Medical History Cardiovascular: Congestive heart failure Respiratory: Asthma Endocrine/Autoimmune: None GI: None BACK FACER: None : None HEENT: None Psych: None Musculoskeletal: Osteoarthritis Derm: None - Past Surgical History Past Surgical History: Yes /BACK FACER: Hysterectomy HEENT: Tonsil/Adenoidectomy - Present Medications Home Medications: Ambulatory Orders Medication Instructions Recorded Confirmed Diclofenac Sodium [Voltaren] 5 g TP QID PRN 01/26/13 07/15/16 Gabapentin 100 - 300 mg PO QPM 02/13/14 07/15/16 Dabigatran Etexilate Mesylate 150 mg PO BID 05/17/16 07/15/16 [Pradaxa] Budesonide/Formoterol Fumarate 2 puffs INH BID 07/15/16 07/15/16 [Symbicort 160-4.5 Mcg Inhaler] Diltiazem HCl [Cartia Xt] 120 mg PO DAILY 07/15/16 07/15/16 Cephalexin [Keflex] 500 mg PO BID #4 capsule 07/16/16 Nitrofurantoin Monohyd/M-Cryst 100 mg PO BID #10 capsule 06/29/18 [Macrobid 100 mg Capsule] traZODone [Desyrel] 50 mg PO HS #30 tablet 06/29/18 - Allergies Allergies/Adverse Reactions: Allergies Allergy/AdvReac Type Severity Reaction Status Date / Time adhesive Allergy Unknown Verified 06/05/19 08:28 mold Allergy Unknown Verified 06/05/19 08:28 Yeast Allergy Unknown Verified 06/05/19 08:28 - Social History Does the pt smoke?: No Smoking Status: Never smoker Does the pt drink ETOH?: Yes Does the pt have substance abuse?: No - Immunizations Immunizations are current?: Yes - POLST Patient has POLST: Yes PD ED PE NORMAL - Vitals Vital signs reviewed: Yes - General General: Alert and oriented X 3 - HEENT HEENT: Atraumatic - Neck Neck: Supple, no meningeal sign - Cardiac Cardiac: No murmur - Respiratory Respiratory: No respiratory distress, Clear bilaterally - Abdomen Abdomen: Normal bowel sounds, Soft - Extremities Extremities: No deformity - Neuro Neuro: Alert and oriented X 3, information security specialist 2-12 intact, No motor deficit, No sensory deficit, Normal speech Eye Opening: Spontaneous Motor: Obeys Commands Verbal: Oriented GCS Score: 15 Results - Vitals Vitals: Oxygen O2 Source Room air - EKG (time done) 2058 Rate: Rate (enter#) (68) [place]: Normal Intervals: Normal [place] QRS: Normal Ischemia: Non specific changes (sinus arrhythmia. poor r wave progression) - Labs Labs: Laboratory Tests 06/04/19 06/04/19 06/04/19 20:51 20:51 20:51 WBC 7.3 RBC 4.07 L Hgb 13.0 Hct 39.1 MCV 96.1 MCH 31.9 H MCHC 33.2 RDW 12.9 Plt Count 280 MPV 9.0 Neut # (Auto) 4.4 Lymph # (Auto) 2.0 [place] # (Auto) 0.7 Eos # (Auto) 0.1 Baso # (Auto) 0.0 Absolute Nucleated RBC 0.00 Nucleated RBC % 0.0 PT 28.6 H INR 2.7 H Sodium 130 L Potassium 4.3 Chloride 97 L Carbon Dioxide 25 Anion Gap 8.0 BUN 20 Creatinine 1.0 Estimated GFR (MDRD) 53 L Glucose 105 H Calcium 9.0 Total Bilirubin 0.3 AST 22 ALT 26 Alkaline Phosphatase 41 L Troponin I High Sens B-Natriuretic Peptide Total Protein 6.6 L Albumin 4.0 Globulin 2.6 Albumin/Globulin Ratio 1.5 Lipase 53 H 06/04/19 06/04/19 20:51 20:51 WBC RBC Hgb Hct MCV MCH MCHC RDW Plt Count MPV Neut # (Auto) Lymph # (Auto) [place] # (Auto) Eos # (Auto) Baso # (Auto) Absolute Nucleated RBC Nucleated RBC % PT INR Sodium Potassium Chloride Carbon Dioxide Anion Gap BUN Creatinine Estimated GFR (MDRD) Glucose Calcium Total Bilirubin AST ALT Alkaline Phosphatase Troponin I High Sens 6.2 B-Natriuretic Peptide 307 H Total Protein Albumin Globulin Albumin/Globulin Ratio Lipase PD MEDICAL DECISION MAKING - ED course Complexity details: re-evaluated patient, d/w patient, d/w family ED course: 79-year-old female who presented to the emergency department because of fatigue. Patient underwent CABG in February. Patient has been going to cardiac rehab. Patient's vital signs were stable here in the emergency department. Patient was not hypotensive. Patient was started on multiple medications recently for her heart. It is very likely that a combination of these medications as a result of his fatigue. Patient denies any syncope or near syncope.She is on a low dose of these medications. Laboratory findings were unremarkable. At this time, I do not recommend any medication changes. Patient has appointment to see her primary care doctor in 2 days. I recommended that the patient did discuss her problem with her doctor. I also recommended the patient to follow-up with her client service executive to see if he would consider changing her medication regimen. At this time, patient Was stable to be discharged. Patient was noted to be mildly hyponatremic and given her history of congestive heart failure, I do not recommend an increase in salt intake.Strict return instructions were given. Patient expressed verbal understanding. was at bedside. Patient was discharged in stable condition. Departure - Departure Disposition: 01 Home, Self Care Clinical Impression: Fatigue, Hyponatremia Condition: Stable Instructions: Fatigue Manage, ED Hyponatremia Follow-Up: Krystian Bush DO [Primary Care Provider] - Within 3 Days Catalino Almeida MD [Physician No Access] - Within 1 week Comments: PLEASE CONTINUE YOUR MEDICATIONS PRESCRIBED. PLEASE RETURN TO THE EMERGENCY DEPARTMENT IF YOU DEVELOP DIZZINESS, EPISODES OF PASSING OUT OR ANY NEW OR CONCERNING SYMPTOMS. Discharge Date/Time: 06/04/19 23:10
[2019-06-04 22:13] VITALS: BP 122/69
== END 2019-06-04 23:10 | disposition home or self-care (01) ==
LOC: ED 19:17
DX: R53.83 Other fatigue (principal); E87.1 Hypo-osmolality and hyponatremia
CPT/HCPCS: 36415; 71045; 80048; 80053; 83690; 83880; 84484; 85025; 85610; 93005; 99284

== ENCOUNTER 2019-08-02 08:00 | Outpatient (CLI) | payer MEDICARE, OTHER | END 2019-08-02 23:59 | disposition home or self-care (01) | LOC: LAB.WCP 08:00 | PROVIDERS: ATTEND Family Medicine | DX: I48.0 Paroxysmal atrial fibrillation (principal); Z79.01 Long term (current) use of anticoagulants; Z95.2 Presence of prosthetic heart valve ==

== ENCOUNTER 2019-09-27 08:00 | Outpatient (CLI) | payer MEDICARE, OTHER | END 2019-09-27 23:59 | disposition home or self-care (01) | LOC: LAB.WCP 08:00 | PROVIDERS: ATTEND Family Medicine | DX: I48.0 Paroxysmal atrial fibrillation (principal); Z79.01 Long term (current) use of anticoagulants ==

== ENCOUNTER 2019-10-15 08:00 | Outpatient (CLI) | payer MEDICARE, OTHER | END 2019-10-15 23:59 | disposition home or self-care (01) | LOC: LAB.WCP 08:00 | PROVIDERS: ATTEND Family Medicine | DX: I48.0 Paroxysmal atrial fibrillation (principal); Z79.01 Long term (current) use of anticoagulants ==

== ENCOUNTER 2019-10-22 08:00 | Outpatient (CLI) | payer MEDICARE, OTHER | END 2019-10-22 23:59 | disposition home or self-care (01) | LOC: LAB.WCP 08:00 | PROVIDERS: ATTEND Family Medicine | DX: I48.0 Paroxysmal atrial fibrillation (principal); Z79.01 Long term (current) use of anticoagulants ==

== ENCOUNTER 2019-10-31 08:00 | Outpatient (CLI) | payer MEDICARE, OTHER | END 2019-10-31 23:59 | disposition home or self-care (01) | LOC: LAB.WCP 08:00 | PROVIDERS: ATTEND Family Medicine | DX: I48.0 Paroxysmal atrial fibrillation (principal); Z79.01 Long term (current) use of anticoagulants ==

== ENCOUNTER 2019-11-02 09:17 | Outpatient (CLI) | payer MEDICARE, OTHER ==
[2019-11-02] MEDS ORDERED: ALBUTEROL 1 PUFF INH STA (13:03)
== END 2019-11-02 09:18 | disposition home or self-care (01) ==
LOC: RT 09:17
PROVIDERS: ATTEND Family Medicine
DX: R05 Cough (principal); J47.9 Bronchiectasis, uncomplicated
CPT/HCPCS: 94060; 94727; 94729

== ENCOUNTER 2019-12-05 08:00 | Outpatient (CLI) | payer MEDICARE, OTHER | END 2019-12-05 23:59 | disposition home or self-care (01) | LOC: LAB.WCP 08:00 | PROVIDERS: ATTEND Family Medicine | DX: I48.0 Paroxysmal atrial fibrillation (principal); Z79.01 Long term (current) use of anticoagulants; Z95.3 Presence of xenogenic heart valve ==

== ENCOUNTER 2020-01-02 08:00 | Outpatient (CLI) | payer MEDICARE, OTHER | END 2020-01-02 23:59 | disposition home or self-care (01) | LOC: LAB.WCP 08:00 | PROVIDERS: ATTEND Family Medicine | DX: Z79.01 Long term (current) use of anticoagulants (principal) ==

== ENCOUNTER 2020-06-09 08:00 | Outpatient (CLI) | payer MEDICARE, OTHER ==
[2020-06-09 18:07] LABS: BASOPHILS # (AUTO) 0.1 10^3/uL (0.0-0.1); BASOPHILS % (AUTO) 0.6 %; EOSINOPHILS # (AUTO) 0.4 10^3/uL (0.0-0.7); EOSINOPHILS % (AUTO) 5.2 %; HCT - HEMATOCRIT 43.7 % (37.0-47.0); HGB - HEMOGLOBIN 13.9 g/dL (12.0-16.0); LYMPHOCYTES # (AUTO) 2.1 10^3/uL (1.5-3.5); LYMPHOCYTES % (AUTO) 24.7 %; MEAN CORPUSCULAR HEMOGLOBIN 32.3 pg (27.0-31.0); MEAN CORPUSCULAR HGB CONC 31.8 g/dL (32.0-36.0); MEAN CORPUSCULAR VOLUME 101.4 fL (81.0-99.0); MEAN PLATELET VOLUME 9.8 fL (7.9-10.8); MONOCYTES # (AUTO) 0.6 10^3/uL (0.0-1.0); MONOCYTES % (AUTO) 7.5 %; NEUTROPHILS # (AUTO) 5.1 10^3/uL (1.5-6.6); NEUTROPHILS % (AUTO) 61.6 %; PLT - PLATELET COUNT 285 10^3/uL (130-450); RED BLOOD COUNT 4.31 10^6/uL (4.20-5.40); RED CELL DISTRIBUTION WIDTH 12.2 % (12.0-15.0); WHITE BLOOD COUNT 8.3 x10^3/uL (4.8-10.8)
[2020-06-09 18:31] LABS: ALBUMIN 4.4 g/dL (3.2-5.5); ALBUMIN/GLOBULIN RATIO 1.6 (1.0-2.2); ALKALINE PHOSPHATASE 50 IU/L (42-121); ALT ALANINE AMINOTRANSFERASE 26 IU/L (10-60); AST ASPARTATE AMINOTRANSFERASE 27 IU/L (10-42); BILIRUBIN,TOTAL 0.3 mg/dL (0.2-1.0); BUN - BLOOD UREA NITROGEN 19 mg/dL (6-20); CALCIUM 9.6 mg/dL (8.5-10.3); CARBON DIOXIDE - CO2 26 mmol/L (21-32); CHLORIDE 102 mmol/L (101-111); CHOL/HDL RATIO 2.6 (<4.4); CHOLESTEROL 201 mg/dL; CREATININE 0.7 mg/dL (0.4-1.0); GFR - MDRD 80 (>89); GLUCOSE 99 mg/dL (70-100); HDL CHOLESTEROL 76 mg/dL; LDL CHOLESTEROL,CALCULATED 93 mg/dL; LDL/HDL RATIO 1.2 (<4.4); POTASSIUM 4.6 mmol/L (3.5-5.0); SODIUM 136 mmol/L (135-145); TOTAL PROTEIN 7.2 g/dL (6.7-8.2); TRIGLYCERIDES 161 mg/dL; VLDL CHOLESTEROL 32 mg/dL
[2020-06-09 18:32] LABS: THYROID STIMULATING HORMONE 2.69 uIU/mL (0.34-5.60)
[2020-06-09 20:43] LABS: ESTIMATED AVERAGE GLUCOSE 111 mg/dL (70-100); HEMOGLOBIN A1c% 5.5 % (4.27-6.07)
== END 2020-06-09 23:59 | disposition home or self-care (01) ==
LOC: LAB.WCP 08:00
PROVIDERS: ATTEND Family Medicine
DX: I10 Essential (primary) hypertension (principal); I48.0 Paroxysmal atrial fibrillation; R73.01 Impaired fasting glucose
CPT/HCPCS: 36415; 80053; 80061; 83036; 83721; 83735; 84443; 85025

== ENCOUNTER 2020-08-11 14:57 | Outpatient (CLI) | payer MEDICARE, OTHER ==
--- NOTE | 2020-08-11 17:00 | XRAY Report ---
PROCEDURE: Chest 2 View X-Ray INDICATIONS: ATYPICAL CHEST PX TECHNIQUE: 2 view(s) of the chest. COMPARISON: None. FINDINGS: Surgical changes and devices: Possible bilateral breast implants are seen and are grossly intact. Med jennifer sternotomy wires and cardiac clip is seen. Lungs and pleura: No pleural effusions or pneumothorax. Lungs are clear. Mediastinum: Mediastinal contours are normal. Heart size is normal. Bones and chest wall: No suspicious bony abnormalities. Soft tissues appear unremarkable. IMPRESSION: No acute cardiopulmonary pathology. Reviewed by: Ashwin Aguirre MD on 08/11/2020 4:58 PM PDT Approved by: Ashwin Aguirre MD on 08/11/2020 4:58 PM PDT Station ID: [id number]
--- NOTE | 2020-08-11 17:02 | XRAY Report ---
PROCEDURE: Lumbar Spine 2 View INDICATIONS: CHRONIC LOW BACK PX TECHNIQUE: 3 views of the lumbar spine were acquired. COMPARISON: None. FINDINGS: Bones: 5 [id number] vertebrae are present. There is grade 1 anterolisthesis of L3 on L4. Degen erative endplate changes and bilateral facet arthrosis throughout lumbar spine is seen more prominent at L3-4 and L4-5 levels. No vertebral body compression fractures. No suspicious bony lesions. Soft tissues: Overlying bowel gas pattern is normal. No suspicious soft tissue calcifications. IMPRESSION: Degenerative disc disease throughout lumbar spine more prominent at L3-4 and L4-5 levels . Grade 1 anterolisthesis of L3 on L4. No acute compression fracture. Reviewed by: Ashwin Aguirre MD on 08/11/2020 5:00 PM PDT Approved by: Ashwin Aguirre MD on 08/11/2020 5:00 PM PDT Station ID: [id number]
== END 2020-08-11 14:58 | disposition home or self-care (01) ==
LOC: DI.N 14:57
PROVIDERS: ATTEND Family Medicine
DX: R07.89 Other chest pain (principal); M51.36 Other intervertebral disc degeneration, lumbar region; M43.16 Spondylolisthesis, lumbar region

== ENCOUNTER 2020-10-16 11:44 | Emergency (ER) | payer MEDICARE, OTHER ==
--- NOTE | 2020-10-16 12:19 | ED Physician Documentation ---
PD HPI FOCAL NEURO - Stated complaint Stated Complaint: SLURRED SPEECH - Chief complaint Chief Complaint: Neuro - History obtained from History obtained from: Patient, Family - History of Present Illness Timing - onset: Enter time (1110), Today Timing - duration: Minutes (10) Timing - details: Abrupt onset, Now resolved Severity of deficit: Mild Weakness: No: Face, Arm, Hand, Leg, Foot, Right, Left Numbness: Face, Right. No: Arm, Hand, Leg, Foot Associated symptoms: No: Headache, Nausea / vomiting, Seizure, Syncope, Fall, Head injury, Chest pain, Neck pain, Back pain, Fever Contributing factors: positive: Anticoagulated Baseline status: positive: A&OX3, ambulatory, indep Similar symptoms before: Diagnosis (TIA thought to be a migraine) Recently seen: Not recently seen - Additional information Additional information: Previously well 80-year-old female with a history of a atrial valve replacement with a porcine valve was standing in the kitchen today chopping vegetables when she developed some difficulty speaking. She noticed this immediately again she went to look in the mirror she did not find any facial droop associated with this she did have some numbness to the right side of her mouth. She had some numbness to her fingertips and she wrote that off as possible carpal tunnel. Al l of the symptoms have resolved. She tells me that she has had symptoms previously consistent with TIA and has had a work-up and has been seen by a neurologist and the thought was she may have some type of a migraine disorder. The patient describes having prior episodes of difficulty with words in a Scrabble game that resolved. Review of Systems Constitutional: denies: Fever Eyes: denies: Decreased vision Ears: denies: Ear pain Nose: denies: Congestion Throat: denies: Sore throat Cardiac: denies: Chest pain / pressure, Palpitations Respiratory: denies: Dyspnea, Cough GI: denies: Abdominal Pain, Nausea, Vomiting, Diarrhea : denies: Dysuria, Frequency Skin: denies: Rash Musculoskeletal: denies: Neck pain, Back pain, Extremity pain Neurologic: reports: Difficulty speaking (resovled). denies: Generalized weakness, Focal weakness, Numbness, Syncope, Seizure, Altered mental status, Headache, Head injury, LOC PD PAST MEDICAL HISTORY - Past Medical History Cardiovascular: Congestive heart failure Respiratory: Asthma Endocrine/Autoimmune: None GI: None BED WORKER: None : None HEENT: None Psych: None Musculoskeletal: Osteoarthritis Derm: None - Past Surgical History Past Surgical History: Yes /BED WORKER: Hysterectomy HEENT: Tonsil/Adenoidectomy - Present Medications Home Medications: Ambulatory Orders Medication Instructions Recorded Confirmed Diclofenac Sodium [Voltaren] 5 g TP QID PRN 01/26/13 07/15/16 Gabapentin 100 - 300 mg PO QPM 02/13/14 07/15/16 Dabigatran Etexilate Mesylate 150 mg PO BID 05/17/16 07/15/16 [Pradaxa] Budesonide/Formoterol Fumarate 2 puffs INH BID 07/15/16 07/15/16 [Symbicort 160-4.5 Mcg Inhaler] Diltiazem HCl [Cartia Xt] 120 mg PO DAILY 07/15/16 07/15/16 cephALEXin [Keflex] 500 mg PO BID #4 capsule 07/16/16 Nitrofurantoin Monohyd/M-Cryst 100 mg PO BID #10 capsule 06/29/18 [Macrobid 100 mg Capsule] traZODone [Desyrel] 50 mg PO HS #30 tablet 06/29/18 - Allergies Allergies/Adverse Reactions: Allergies Allergy/AdvReac Type Severity Reaction Status Date / Time adhesive Allergy Unknown Verified 10/16/20 11:53 mold Allergy Unknown Verified 10/16/20 11:53 Yeast Allergy Unknown Verified 10/16/20 11:53 - Social History Does the pt smoke?: No Smoking Status: Never smoker Does the pt drink ETOH?: Yes Does the pt have substance abuse?: No - Immunizations Immunizations are current?: Yes - POLST Patient has POLST: Yes PD ED PE NORMAL - Vitals Vital signs reviewed: Yes (hypertensive ) - General General: Alert and oriented X 3, No acute distress, Well developed/nourished, Other (broad symetric smile to the face with no dysarthria or aphasia. ) - HEENT HEENT: Atraumatic, PERRL, EOMI - Neck Neck: Supple, no meningeal sign, No bony TTP - Cardiac Cardiac: RRR, No murmur - Respiratory Respiratory: No respiratory distress, Clear bilaterally - Abdomen Abdomen: Normal bowel sounds, Soft, Non tender, Non distended, No organomegaly - Back Back: No CVA TTP, No spinal TTP - Derm Derm: Normal color, Warm and dry, No rash - Extremities Extremities: No deformity, No edema - Neuro Neuro: Alert and oriented X 3, cigarette seller 2-12 intact, No motor deficit, No sensory deficit, Normal speech Eye Opening: Spontaneous Motor: Obeys Commands Verbal: Oriented GCS Score: 15 - Psych Psych: Normal mood, Normal affect NIHSS - Time Time: 12:10 - Level of Consciousness Level of consciousness: (0) Alert, Keenly responsive LOC Questions: (0) Answers both Q's correct LOC Commands: (0) Performs both correctly - Gaze Best Gaze: (0) Normal - Visual Visual: (0) No loss - Facial Palsy Facial Palsy: (0) Normal, symmetrical movement - Motor Arms (both separate) Motor Arm (right): (0) No drift Motor Arm (left): (0) No drift - Motor Legs (both separate) Motor Leg (right): (0) No drift Motor Leg (left): (0) No drift - Limb Ataxia Limb Ataxia: (0) Absent - Sensory Sensory: (0) Normal - Best Language Best Language: (0) No aphasia - Dysarthria Dysarthria: (0) Normal - Extinction and Inattention (formally neg Extinction and inattention: (0) No abnormality - Total Score/Results Total Score/Result: 0 Results - Vitals Vitals: Vital Signs - 24 hr 10/16/20 10/16/20 10/16/20 11:49 12:23 12:30 Temperature 36.5 C 36.5 C Heart Rate 82 82 81 Respiratory 16 16 16 Rate Blood Pressure 139/72 H 139/72 H 114/70 O2 Saturation 100 100 96 10/16/20 10/16/20 10/16/20 13:00 13:30 14:00 Temperature Heart Rate 70 70 92 Respiratory 20 16 18 Rate Blood Pressure 123/78 100/60 95/52 L O2 Saturation 98 98 98 10/16/20 14:30 Temperature Heart Rate 76 Respiratory 18 Rate Blood Pressure 95/80 O2 Saturation 96 Oxygen O2 Source Room air - EKG (time done) 1214 Rate: Rate (enter#) (76) [place]: LAD Intervals: Wide QRS Compare to prior EKG: Unchanged from prior EKG (SPT 06-04-2019 no sig change) Computer interpretation: Agree with computer - Labs Labs: Laboratory Tests 10/16/20 10/16/20 10/16/20 12:33 12:33 12:33 WBC 7.6 RBC 4.12 L Hgb 13.8 Hct 40.6 MCV 98.5 MCH 33.5 H MCHC 34.0 RDW 12.0 Plt Count 251 MPV 9.2 Neut # (Auto) 4.4 Lymph # (Auto) 2.4 [place] # (Auto) 0.6 Eos # (Auto) 0.1 Baso # (Auto) 0.0 Absolute Nucleated RBC 0.00 Nucleated RBC % 0.0 Sodium 135 Potassium 4.6 Chloride 100 L Carbon Dioxide 27 Anion Gap 8.0 BUN 18 Creatinine 0.8 Estimated GFR (MDRD) 69 L Glucose 96 Calcium 9.6 Total Bilirubin 0.8 AST 31 ALT 28 Alkaline Phosphatase 48 Troponin I High Sens 5.0 B-Natriuretic Peptide Total Protein 7.0 Albumin 4.2 Globulin 2.8 Albumin/Globulin Ratio 1.5 Lipase 43 Urine Color Urine Clarity Urine pH Ur Specific [place] Urine Protein Urine Glucose (UA) Urine Ketones Urine Occult Blood Urine Nitrite Urine Bilirubin Urine Urobilinogen Ur Leukocyte Esterase Ur Microscopic Review Urine Culture Comments 10/16/20 10/16/20 12:33 14:10 WBC RBC Hgb Hct MCV MCH MCHC RDW Plt Count MPV Neut # (Auto) Lymph # (Auto) [place] # (Auto) Eos # (Auto) Baso # (Auto) Absolute Nucleated RBC Nucleated RBC % Sodium Potassium Chloride Carbon Dioxide Anion Gap BUN Creatinine Estimated GFR (MDRD) Glucose Calcium Total Bilirubin AST ALT Alkaline Phosphatase Troponin I High Sens B-Natriuretic Peptide 266 H Total Protein Albumin Globulin Albumin/Globulin Ratio Lipase Urine Color YELLOW Urine Clarity CLEAR Urine pH 6.5 Ur Specific [place] 1.010 Urine Protein NEGATIVE Urine Glucose (UA) NEGATIVE Urine Ketones NEGATIVE Urine Occult Blood TRACE-INTA Urine Nitrite NEGATIVE Urine Bilirubin NEGATIVE Urine Urobilinogen 0.2 (NORMAL) Ur Leukocyte Esterase NEGATIVE Ur Microscopic Review NOT INDICATED Urine Culture Comments NOT INDICATED - Rads (name of study) CT head w/o Radiology: Prelim report reviewed (Impression: No acute intracranial finding.), EMP read indepedently, See rad report Procedures - IVC sono (time) 1210 Bedside IVC sono: IVC measures (cm) (1.39), IVC collapsed c insp (cm) (complete), Dehydration (mild 1 liter deficit) PD MEDICAL DECISION MAKING - ED course Complexity details: reviewed old records, reviewed results, re-evaluated patient, considered differential, d/w patient, d/w family ED course: 80-year-old female on Eliquis with a porcine valve in place has developed symptoms consistent with a TIA with some speech difficulty that has resolved. She has had prior work-up for stroke and has been in to see the neurologist. She has been diagnosed with a possible migraine variant.Today in the emergency department she is found to be mildly dehydrated and IV saline is administered and a stroke work-up is ensued.This included blood work and a CT scan of the head. CT scan was without abnormality blood work was unremarkable. The patient is on Eliquis she has had prior stroke work-up her stroke risks have been identified and treated. Today she is dehydrated and has had a TIA. Departure - Departure Disposition: 01 Home, Self Care Clinical Impression: Dehydration TIA (transient ischemic attack) Qualifiers: Transient cerebral ischemia type: other Qualified Code(s): G45.8 - Other transient cerebral ischemic attacks and related syndromes Condition: Stable Instructions: ED Transient Ischemic Attack, ED Dehydration Follow-Up: Krystian Bush DO [Primary Care Provider] -
[2020-10-16 12:39] LABS: BASOPHILS % (AUTO) 0.4 %; EOSINOPHILS # (AUTO) 0.1 10^3/uL (0.0-0.7); EOSINOPHILS % (AUTO) 1.7 %; HCT - HEMATOCRIT 40.6 % (37.0-47.0); HGB - HEMOGLOBIN 13.8 g/dL (12.0-16.0); LYMPHOCYTES # (AUTO) 2.4 10^3/uL (1.5-3.5); LYMPHOCYTES % (AUTO) 31.8 %; MEAN CORPUSCULAR HEMOGLOBIN 33.5 pg (27.0-31.0); MEAN CORPUSCULAR VOLUME 98.5 fL (81.0-99.0); MEAN PLATELET VOLUME 9.2 fL (7.9-10.8); MONOCYTES # (AUTO) 0.6 10^3/uL (0.0-1.0); MONOCYTES % (AUTO) 7.7 %; NEUTROPHILS # (AUTO) 4.4 10^3/uL (1.5-6.6); NEUTROPHILS % (AUTO) 58.1 %; PLT - PLATELET COUNT 251 10^3/uL (130-450); RED BLOOD COUNT 4.12 10^6/uL (4.20-5.40); WHITE BLOOD COUNT 7.6 x10^3/uL (4.8-10.8)
[2020-10-16 12:51] LABS: ALBUMIN 4.2 g/dL (3.2-5.5); ALBUMIN/GLOBULIN RATIO 1.5 (1.0-2.2); BILIRUBIN,TOTAL 0.8 mg/dL (0.2-1.0); CALCIUM 9.6 mg/dL (8.5-10.3); CREATININE 0.8 mg/dL (0.4-1.0); POTASSIUM 4.6 mmol/L (3.5-5.0)
[2020-10-16 14:17] LABS: BILIRUBIN,URINE NEGATIVE (NEGATIVE); GLUCOSE, URINE (UA) NEGATIVE (NEGATIVE); KETONES,URINE (UA) NEGATIVE (NEGATIVE); LEUKOCYTE ESTERASE, URINE NEGATIVE (NEGATIVE); NITRITE,URINE NEGATIVE (NEGATIVE); OCCULT BLOOD,URINE TRACE-INTA (NEGATIVE); PH,URINE 6.5 PH (5.0-7.5); PROTEIN,URINE NEGATIVE (NEGATIVE); UROBILINOGEN,URINE 0.2 (NORMAL) E.U./dL (NORMAL)
[2020-10-16 14:18] LABS: CLARITY,URINE CLEAR (CLEAR)
[2020-10-16 14:39] VITALS: BP 95/80
--- NOTE | 2020-10-16 14:48 | CT Report ---
PROCEDURE: HEAD WO INDICATIONS: TIA, resolved TECHNIQUE: Noncontrast 4.5 mm thick angled axial sections acquired from the foramen magnum to the vertex. For r adiation dose reduction, the following was used: automated exposure control, adjustment of mA and/or kV according to patient size. COMPARISON: Elevated routine FINDINGS: Image quality: Excellent. CSF spaces: Basal cisterns are patent. No extra-axial fluid collections. Ventricles are normal in size and shape. Brain: No midline shift. No intracranial masses or hemorrhage. [place]-white matter interface is norm al. Skull and face: Calvarium and visualized facial bones are intact, without suspicious lesions. Sinuses: Visualized sinuses and mastoids are clear. IMPRESSION: No acute intracranial finding. Reviewed by: Anatoliy Barillas MD on 10/16/2020 2:47 PM PDT Approved by: Anatoliy Barillas MD on 10/16/2020 2:47 PM PDT Station ID: [id number]
== END 2020-10-16 14:59 | disposition home or self-care (01) ==
LOC: ED 11:44
DX: G45.8 Other transient cerebral ischemic attacks and related syndromes (principal); E86.0 Dehydration; Z95.2 Presence of prosthetic heart valve; Z79.01 Long term (current) use of anticoagulants; I50.9 Heart failure, unspecified
CPT/HCPCS: 36415; 80053; 81001; 81003; 83690; 83880; 84484; 85025; 87086; 93005; 99284

== ENCOUNTER 2020-11-02 10:48 | Emergency (ER) | payer MEDICARE, OTHER ==
[2020-11-02 11:11] VITALS: BP 124/69
--- NOTE | 2020-11-02 12:18 | ED Physician Documentation ---
PD HPI UPPER EXT INJURY - Stated complaint Stated Complaint: R ARM INJURY - Chief complaint Chief Complaint: Ext Problem - History obtained from History obtained from: Patient - Additonal information Additional information: This is a allie 80-year-old woman who is up-to-date on tetanus. She had a puncture wound from a crystal thorn on the dorsum of the left forearm today and a hematoma formed which she is worried about. No active bleeding. Review of Systems Constitutional: reports: Reviewed and negative Eyes: reports: Reviewed and negative Ears: reports: Reviewed and negative Nose: reports: Reviewed and negative PD PAST MEDICAL HISTORY - Past Medical History Past Medical History: Yes Cardiovascular: Congestive heart failure Respiratory: Asthma Endocrine/Autoimmune: None GI: None RADIOLOGY SCHEDULER: None : None HEENT: None Psych: None Musculoskeletal: Osteoarthritis Derm: None - Past Surgical History Past Surgical History: Yes /RADIOLOGY SCHEDULER: Hysterectomy HEENT: Tonsil/Adenoidectomy - Present Medications Home Medications: Ambulatory Orders Medication Instructions Recorded Confirmed Diclofenac Sodium [Voltaren] 5 g TP QID PRN 01/26/13 07/15/16 Gabapentin 100 - 300 mg PO QPM 02/13/14 07/15/16 Dabigatran Etexilate Mesylate 150 mg PO BID 05/17/16 07/15/16 [Pradaxa] Budesonide/Formoterol Fumarate 2 puffs INH BID 07/15/16 07/15/16 [Symbicort 160-4.5 Mcg Inhaler] Diltiazem HCl [Cartia Xt] 120 mg PO DAILY 07/15/16 07/15/16 cephALEXin [Keflex] 500 mg PO BID #4 capsule 07/16/16 Nitrofurantoin Monohyd/M-Cryst 100 mg PO BID #10 capsule 06/29/18 [Macrobid 100 mg Capsule] traZODone [Desyrel] 50 mg PO HS #30 tablet 06/29/18 - Allergies Allergies/Adverse Reactions: Allergies Allergy/AdvReac Type Severity Reaction Status Date / Time adhesive Allergy Unknown Verified 11/02/20 11:11 mold Allergy Unknown Verified 11/02/20 11:11 Yeast Allergy Unknown Verified 11/02/20 11:11 - Social History Does the pt smoke?: No Smoking Status: Never smoker Does the pt drink ETOH?: Yes Does the pt have substance abuse?: No - Immunizations Immunizations are current?: Yes - POLST Patient has POLST: Yes PD ED PE NORMAL - Vitals Vital signs reviewed: Yes - General General: Alert and oriented X 3, No acute distress - Extremities Extremities: Other (There is a tiny puncture wound on the dorsal left forearm with surrounding hematoma and ecchymosis, no active bleeding, no limited range of motion, no pain out of proportion to exam.) - Neuro Neuro: Alert and oriented X 3, Normal speech Results - Vitals Vitals: Vital Signs - 24 hr 11/02/20 11:05 Temperature 36.5 C Heart Rate 72 Respiratory 16 Rate Blood Pressure 124/69 O2 Saturation 98 Oxygen O2 Source Room air Departure - Departure Disposition: Home, Self Care Clinical Impression: Puncture wound, Adequate anticoagulation on anticoagulant therapy Condition: Good Record reviewed to determine appropriate education?: Yes Instructions: ED Wound Puncture General
== END 2020-11-02 12:25 | disposition home or self-care (01) ==
LOC: ED 10:48
DX: S51.832A Puncture wound without foreign body of left forearm, initial encounter (principal); W26.8XXA Contact with other sharp object(s), not elsewhere classified, initial encounter; I50.9 Heart failure, unspecified; Z79.01 Long term (current) use of anticoagulants
CPT/HCPCS: 99281; 99282

== ENCOUNTER 2021-04-22 13:20 | Emergency (ER) | payer MEDICARE, OTHER ==
[2021-04-22 14:01] LABS: BASOPHILS % (AUTO) 0.3 %; EOSINOPHILS # (AUTO) 0.1 10^3/uL (0.0-0.7); EOSINOPHILS % (AUTO) 0.6 %; HCT - HEMATOCRIT 41.5 % (37.0-47.0); HGB - HEMOGLOBIN 13.8 g/dL (12.0-16.0); LYMPHOCYTES # (AUTO) 2.3 10^3/uL (1.5-3.5); LYMPHOCYTES % (AUTO) 26.4 %; MEAN CORPUSCULAR HGB CONC 33.3 g/dL (32.0-36.0); MEAN CORPUSCULAR VOLUME 99.3 fL (81.0-99.0); MEAN PLATELET VOLUME 9.4 fL (7.9-10.8); MONOCYTES # (AUTO) 0.6 10^3/uL (0.0-1.0); MONOCYTES % (AUTO) 7.1 %; NEUTROPHILS # (AUTO) 5.7 10^3/uL (1.5-6.6); NEUTROPHILS % (AUTO) 65.3 %; PLT - PLATELET COUNT 213 10^3/uL (130-450); RED BLOOD COUNT 4.18 10^6/uL (4.20-5.40); WHITE BLOOD COUNT 8.7 x10^3/uL (4.8-10.8)
[2021-04-22 14:18] LABS: ALBUMIN/GLOBULIN RATIO 1.5 (1.0-2.2); BILIRUBIN,TOTAL 0.8 mg/dL (0.2-1.0); CALCIUM 9.3 mg/dL (8.5-10.3); CREATININE 0.9 mg/dL (0.4-1.0); POTASSIUM 4.1 mmol/L (3.5-5.0); TOTAL PROTEIN 6.7 g/dL (6.7-8.2)
--- NOTE | 2021-04-22 15:36 | ED Physician Documentation ---
History of Present Illness - Stated complaint Stated Complaint: NOT SPEAKING CLEARLY - Chief complaint Chief Complaint: Neuro - Additonal information Additional information: 80-year-old female presents emergency department for evaluation of what she reports is speech deficits intermittently over the last 2 days. She states that she has a history of TIAs. When she has been on the phone with her sister she finds that she has difficulty with some word finding and expressing her thoughts. However she is not explicitly finding garbled speech or slurred speech. She reports that she often has to pause to find her words which is new for her. This has occurred 3 times over the last 2 days. She reports a remote history of TIA. She does have a history of porcine mitral valve replacement for which she takes Eliquis. Also has a history of hypertension. On metoprolol, losartan. Occasionally takes Xanax for anxiety. Review of Systems Constitutional: denies: Fever, Chills Eyes: reports: Reviewed and negative Nose: reports: Reviewed and negative Throat: reports: Reviewed and negative Cardiac: reports: Reviewed and negative Respiratory: reports: Reviewed and negative GI: denies: Abdominal Pain, Nausea, Vomiting : reports: Reviewed and negative Skin: denies: Rash, Lesions Musculoskeletal: reports: Reviewed and negative Neurologic: denies: Generalized weakness, Focal weakness, Numbness, Difficulty speaking, Syncope, Seizure, Confused, Headache Psychiatric: reports: Reviewed and negative PD PAST MEDICAL HISTORY - Past Medical History Cardiovascular: Congestive heart failure Respiratory: Asthma Endocrine/Autoimmune: None GI: None 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 : None HEENT: None Psych: None Musculoskeletal: Osteoarthritis Derm: None - Past Surgical History Past Surgical History: Yes /TORCH SOLDERER: Hysterectomy HEENT: Tonsil/Adenoidectomy - Present Medications Home Medications: Ambulatory Orders Medication Instructions Recorded Confirmed Diclofenac Sodium [Voltaren] 5 g TP QID PRN 01/26/13 07/15/16 Gabapentin 100 - 300 mg PO QPM 02/13/14 07/15/16 Dabigatran Etexilate Mesylate 150 mg PO BID 05/17/16 07/15/16 [Pradaxa] Budesonide/Formoterol Fumarate 2 puffs INH BID 07/15/16 07/15/16 [Symbicort 160-4.5 Mcg Inhaler] Diltiazem HCl [Cartia Xt] 120 mg PO DAILY 07/15/16 07/15/16 cephALEXin [Keflex] 500 mg PO BID #4 capsule 07/16/16 Nitrofurantoin Monohyd/M-Cryst 100 mg PO BID #10 capsule 06/29/18 [Macrobid 100 mg Capsule] traZODone [Desyrel] 50 mg PO HS #30 tablet 06/29/18 - Allergies Allergies/Adverse Reactions: Allergies Allergy/AdvReac Type Severity Reaction Status Date / Time adhesive Allergy Unknown Verified 04/22/21 13:42 mold Allergy Unknown Verified 04/22/21 13:42 Yeast Allergy Unknown Verified 04/22/21 13:42 - Social History Does the pt smoke?: No Smoking Status: Never smoker Does the pt drink ETOH?: Yes Does the pt have substance abuse?: No - Immunizations Immunizations are current?: Yes - POLST Patient has POLST: Yes PD ED PE NORMAL - General General: Alert and oriented X 3, No acute distress - HEENT HEENT: PERRL - Neck Neck: Supple, no meningeal sign - Cardiac Cardiac: RRR, No murmur - Respiratory Respiratory: No respiratory distress - Abdomen Abdomen: Normal bowel sounds, Soft, Non tender, Non distended - Back Back: No CVA TTP, No spinal TTP - Derm Derm: Normal color, Warm and dry - Extremities Extremities: No deformity, No tenderness to palpate, Normal ROM s pain, No edema - Neuro Neuro: Alert and oriented X 3, 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 No: Prolonged QT QRS: Low voltage Ischemia: Normal ST segments Compare to prior EKG: Unchanged from prior EKG Computer interpretation: Agree with computer - Labs Labs: Laboratory Tests 04/22/21 04/22/21 04/22/21 13:57 13:57 13:57 WBC 8.7 RBC 4.18 L Hgb 13.8 Hct 41.5 MCV 99.3 H MCH 33.0 H MCHC 33.3 RDW 12.0 Plt Count 213 MPV 9.4 Neut # (Auto) 5.7 Lymph # (Auto) 2.3 [place] # (Auto) 0.6 Eos # (Auto) 0.1 Baso # (Auto) 0.0 Absolute Nucleated RBC 0.00 Nucleated RBC % 0.0 Sodium 136 Potassium 4.1 Chloride 100 L Carbon Dioxide 28 Anion Gap 8.0 BUN 18 Creatinine 0.9 Estimated GFR (MDRD) 60 L Glucose 147 H POC Whole Bld Glucose Calcium 9.3 Total Bilirubin 0.8 AST 27 ALT 23 Alkaline Phosphatase 42 Troponin I High Sens 5.8 Total Protein 6.7 Albumin 4.0 Globulin 2.7 Albumin/Globulin Ratio 1.5 Lipase 48 04/22/21 15:02 WBC RBC Hgb Hct MCV MCH MCHC RDW Plt Count MPV Neut # (Auto) Lymph # (Auto) [place] # (Auto) Eos # (Auto) Baso # (Auto) Absolute Nucleated RBC Nucleated RBC % Sodium Potassium Chloride Carbon Dioxide Anion Gap BUN Creatinine Estimated GFR (MDRD) Glucose POC Whole Bld Glucose 108 H Calcium Total Bilirubin AST ALT Alkaline Phosphatase Troponin I High Sens Total Protein Albumin Globulin Albumin/Globulin Ratio Lipase - Rads (name of study) CTA head neck Radiology: Final report received (No critical stenosis lesions or bleeds noted.) PD MEDICAL DECISION MAKING - ED course Complexity details: reviewed results, re-evaluated patient, considered differential, d/w patient, d/w family ED course: 80-year-old female presents emergency department for concerns that over the last 2 days she has had difficulty with her speech. Its not fully her to this provider but she states that sometimes she has to pause before speaking but she is not necessarily having any slurred speech or inappropriate speech. On presentation to the ER she has an NIHSS score of 0. Screening labs, EKG are unremarkable. CT angio of the head and neck were also without acute stenosis or lesions. She has had appropriate vital signs while here in the emergency department. I discussed with the patient her concerns that she could be having recurrent TIAs. She does have a history of the porcine valve for which she is already anticoagulated. Patient would benefit from outpatient referral to a neurologist as well as referral for an MRI. We did discuss emergent return precautions for concerns of stroke. Departure - Departure Disposition: 01 Home, Self Care Clinical Impression: Word finding difficulty Condition: Stable Record reviewed to determine appropriate education?: Yes Comments: Emilia kimball were seen in the emergency department today for concerns that you have had difficulty with word finding. However on exam in the emergency department your speech has been normal and fluid. Your stroke scale score is 0. Your screening labs, EKG and chest x-ray were all without worrisome findings. We did do CT angiogram of the head and neck. Reassuringly there was no stenosis of your blood vessels, aneurysms, findings of bleed or mass. I think it is important you discuss this ED visit with your primary care provider. You may benefit from outpatient referral to a neurologist as well as an MRI to evaluate whether you have had strokes in the past. If at any point you develop slurred speech, have facial droop, have sudden weakness in your arms or legs or have sudden loss of vision then you are to return immediately to the ER for a second evaluation.
[2021-04-22 15:45] VITALS: BP 133/88
[2021-04-22] MEDS ORDERED: iohexoL-300 100 ML VIAL ONE (16:18)
--- NOTE | 2021-04-22 16:40 | CT Report ---
PROCEDURE: ANGIO HEAD W/WO INDICATIONS: L sided facial droop CONTRAST: IV CONTRAST: Optiray 320 ml: 80 PO CONTRAST: *NO PO CONTRAST TECHNIQUE: Precontrast 4.5 mm thick angled axial sections acquired from the foramen magnum to the vertex. Afte r the administration of intravenous contrast, 1 mm thick sections acquired through the [place] of [place] is. Postcontrast 4.5 mm thick sections then re-acquired from the foramen magnum to the vertex. 3-di mensional apwgkuh-jrwbcdxiz-ftrekiawbk (MIP) and/or volume rendering reformats were acquired of the c entral intracranial vasculature. For radiation dose reduction, the following was used: automated ex posure control, adjustment of mA and/or kV according to patient size. COMPARISON: Correlation is made with prior head CT, 10/16/2020. Correlation is also made with the [facility] neck CT angiogram, 04/22/2021. FINDINGS: Image quality: Excellent. Anterior circulation: Intracranial internal carotid arteries demonstrate generalized atherosclerotic calcification and irregularity, with approximately 30% narrowing on each side. The flow within the paired anterior cerebral arteries is normal and symmetric. The flow within the middle cerebral arter ies is normal and symmetric. The anterior communicating artery is seen. No aneurysms are seen. Posterior circulation: Visualized portions of the vertebral arteries demonstrate normal caliber, and join to form a normal appearing basilar artery. Flow within the posterior cerebral arteries is norm al and symmetric. No aneurysms are seen. CSF spaces: Ventricles are normal in size and shape. Basal cisterns are patent. No extra-axial flu id collections. Brain: No midline shift. No intracranial bleeds or masses. [place]if[place]-white matter interface appears int act. Skull and face: Calvarium and facial bones appear intact, without suspicious lesions. Sinuses: Visualized sinuses and mastoids are clear. IMPRESSION: No significant intracranial abnormality is seen. No intracranial hemorrhage is seen. No significant intracranial arterial abnormalities are seen. No masses or abnormal enhancement can be seen. Reviewed by: Luis Cantor MD on 04/22/2021 3:39 PM [place] Approved by: Luis Cantor MD on 04/22/2021 3:39 PM [place] Station ID: [id number]
--- NOTE | 2021-04-22 16:42 | CT Report ---
PROCEDURE: ANGIO NECK W INDICATIONS: L sided facial droop, L neck pain CONTRAST: IV CONTRAST: Optiray 320 ml: 80 PO CONTRAST: *NO PO CONTRAST TECHNIQUE: After the administration of intravenous contrast, 1.5 mm axial sections acquired from the aortic arch to the [place] of [place]. Coronal 3-D maximum intensity projection (MIP) and/or volume rendering ref ormats were then performed. For radiation dose reduction, the following was used: automated exposur e control, adjustment of mA and/or kV according to patient size. COMPARISON: Correlation is made with the accompanying head CT angiogram, 04/22/2021. FINDINGS: Image quality: Excellent. Carotid system: The great vessels demonstrate a conventional anatomy as they arise from the aortic a rch. The origins of the common carotid arteries appear patent. The common carotid arteries demonstr ate normal calibers and courses. The bifurcation regions demonstrate atherosclerotic calcification a nd irregularity, yet without a hemodynamically significant stenosis. The more distal internal carotid arteries demonstrate mild tortuosity, it without significant narrowing. Posterior circulation: The origins of the vertebral arteries appear patent. The more superior porti ons of the vertebral arteries demonstrate normal caliber. There is a relatively prominent tortuosity can be seen involving the vertebral arteries. They join to form a normal appearing basilar artery. Soft tissues: Visualized neck soft tissues demonstrate no suspicious abnormalities. The thyroid is normal in size and there are no incidental findings. Bones: No suspicious bony lesions. Visualized cervical spine appears normally aligned. A least mo derate lower cervical spine degenerative changes are seen. Sternotomy changes are noted. IMPRESSION: No hemodynamically significant stenosis can be seen within the arteries of the neck. Incidental note is made of: At least moderate lower cervical spine degenerative change Sternotomy wires The estimate of stenosis included in the report of the imaging study was calculated using the NASCET method Reviewed by: Luis Cantor MD on 04/22/2021 3:41 PM [facility] Approved by: Luis Cantor MD on 04/22/2021 3:41 PM [facility] Station ID: [id number]
[2021-04-22] MEDS ORDERED: iohexoL-300 100 ML VIAL IVP ONE (19:52)
== END 2021-04-22 17:37 | disposition home or self-care (01) ==
LOC: ED 13:20
DX: R47.1 Dysarthria and anarthria (principal); Z95.5 Presence of coronary angioplasty implant and graft; Z79.01 Long term (current) use of anticoagulants; I10 Essential (primary) hypertension
CPT/HCPCS: 36415; 70496; 70498; 80053; 83690; 84484; 85025; 93005; 99283; 99284; Q9967

== ENCOUNTER 2021-05-20 10:31 | Outpatient (CLI) | payer MEDICARE, OTHER ==
--- NOTE | 2021-05-20 14:07 | MRI Report ---
PROCEDURE: Brain W/O INDICATIONS: TIA TECHNIQUE: Noncontrast axial T1 spin echo, axial T2 fast spin echo, sagittal and axial FLAIR, coronal T2 fast sp in echo, axial gradient echo, axial diffusion and ADC through the brain. COMPARISON: Prior brain MRI, 07/16/2016 Correlation is made with prior head CT, 10/16/2020. FINDINGS: Image quality: Excellent. CSF Spaces: Basal cisterns are patent. No extra-axial fluid collections. Ventricles are normal in size and shape. Brain: No intracranial masses or hemorrhage. [place]/white matter interface is normal. Brainstem appe ars normal. Diffusion-weighted images demonstrate no acute ischemic insult. There is again seen a re mote infarction involving the posterior medial right cerebellum. Normal intravascular flow voids are present. Age-appropriate brain parenchymal volume loss and chronic small vessel ischemic change can be seen. Skull and face: Calvarium has normal marrow signal. Orbits appear normal. Sinuses: Sinuses and mastoids are clear. IMPRESSION: No findings of acute or subacute infarction are seen. Age-appropriate brain parenchymal volume loss and chronic small vessel ischemic change can be seen. 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 Reviewed by: Luis Cantor MD on 05/20/2021 1:05 PM [facility] Approved by: Luis Cantor MD on 05/20/2021 1:05 PM [facility] Station ID: [id number]
== END 2021-05-20 10:32 | disposition home or self-care (01) ==
LOC: DI 10:31
PROVIDERS: ATTEND Nurse Practitioner
DX: G45.9 Transient cerebral ischemic attack, unspecified (principal); G31.89 Other specified degenerative diseases of nervous system; I67.82 Cerebral ischemia

== ENCOUNTER 2021-07-28 08:04 | Outpatient (CLI) | payer MEDICARE, OTHER ==
[2021-07-28 08:21] LABS: BASOPHILS % (AUTO) 0.6 %; EOSINOPHILS # (AUTO) 0.2 10^3/uL (0.0-0.7); EOSINOPHILS % (AUTO) 2.4 %; HCT - HEMATOCRIT 41.7 % (37.0-47.0); HGB - HEMOGLOBIN 14.1 g/dL (12.0-16.0); LYMPHOCYTES # (AUTO) 2.3 10^3/uL (1.5-3.5); MEAN CORPUSCULAR HEMOGLOBIN 33.7 pg (27.0-31.0); MEAN CORPUSCULAR HGB CONC 33.8 g/dL (32.0-36.0); MEAN CORPUSCULAR VOLUME 99.8 fL (81.0-99.0); MEAN PLATELET VOLUME 9.3 fL (7.9-10.8); MONOCYTES # (AUTO) 0.5 10^3/uL (0.0-1.0); MONOCYTES % (AUTO) 7.5 %; NEUTROPHILS # (AUTO) 4.1 10^3/uL (1.5-6.6); NEUTROPHILS % (AUTO) 57.2 %; PLT - PLATELET COUNT 219 10^3/uL (130-450); RED BLOOD COUNT 4.18 10^6/uL (4.20-5.40); RED CELL DISTRIBUTION WIDTH 12.1 % (12.0-15.0); WHITE BLOOD COUNT 7.2 x10^3/uL (4.8-10.8)
[2021-07-28 08:42] LABS: ALBUMIN 3.9 g/dL (3.2-5.5); ALBUMIN/GLOBULIN RATIO 1.3 (1.0-2.2); ALKALINE PHOSPHATASE 44 IU/L (42-121); ALT ALANINE AMINOTRANSFERASE 23 IU/L (10-60); AST ASPARTATE AMINOTRANSFERASE 27 IU/L (10-42); BILIRUBIN,TOTAL 0.8 mg/dL (0.2-1.0); BUN - BLOOD UREA NITROGEN 18 mg/dL (6-20); CALCIUM 9.2 mg/dL (8.5-10.3); CARBON DIOXIDE - CO2 27 mmol/L (21-32); CHLORIDE 100 mmol/L (101-111); CHOL/HDL RATIO 2.7 (<4.4); CHOLESTEROL 190 mg/dL; CREATININE 0.8 mg/dL (0.4-1.0); GFR - MDRD 69 (>89); GLUCOSE 113 mg/dL (70-100); HDL CHOLESTEROL 71 mg/dL; LDL CHOLESTEROL,CALCULATED 93 mg/dL; LDL/HDL RATIO 1.3 (<4.4); POTASSIUM 4.2 mmol/L (3.5-5.0); SODIUM 136 mmol/L (135-145); TOTAL PROTEIN 6.8 g/dL (6.7-8.2); TRIGLYCERIDES 129 mg/dL; VLDL CHOLESTEROL 26 mg/dL
[2021-07-28 08:54] LABS: THYROID STIMULATING HORMONE 2.44 uIU/mL (0.34-5.60)
== END 2021-07-28 08:05 | disposition home or self-care (01) ==
LOC: LAB 08:04
PROVIDERS: ATTEND Nurse Practitioner
DX: I11.0 Hypertensive heart disease with heart failure (principal); I50.9 Heart failure, unspecified; R73.01 Impaired fasting glucose; I48.0 Paroxysmal atrial fibrillation
CPT/HCPCS: 36415; 80053; 80061; 81599; 83036; 83721; 84443; 85025

== ENCOUNTER 2021-09-08 15:29 | Outpatient (CLI) | payer MEDICARE, OTHER ==
--- NOTE | 2021-09-08 16:33 | DEXA Report ---
PROCEDURE: Dexa Spine and/or Hip INDICATIONS: POST MENOPAUSAL TECHNIQUE: Dual energy x-ray absorptiometry (DXA) was performed on a Loku System. Regions measur ed are the AP Spine, femoral neck, and if needed forearm. COMPARISON: None. FINDINGS: Lumbar Spine: Bone Mineral Density 0.969 g/cm/cm,T score -1.8 Left Hip: Bone Mineral Density 0.712 g/cm/cm,T score -2.3 Left Femoral Neck: Bone Mineral Density 0.811 g/cm/cm, T score -1.6 (T score greater or equal to -1.0: NORMAL) (T score from -1.1 to -2.4: OSTEOPENIA) (T score less than or equal to -2.5 to: OSTEOPOROSIS) Impression: Osteopenia of the lumbar spine and the left hip. Patients with diagnosis of osteoporosis or osteopenia should have regular bone mineral density assess ment. For those eligible for Medicare, routine testing is allowed once every 2 years. Testing frequ ency can be increased for patients who have rapidly progressing disease or for those who are receivin g medical therapy to restore bone mass. Reviewed by: Nuria Solorzano MD on 09/08/2021 4:31 PM PDT Approved by: Nuria Solorzano MD on 09/08/2021 4:31 PM PDT Station ID: [id number]
== END 2021-09-08 15:30 | disposition home or self-care (01) ==
LOC: DI 15:29
PROVIDERS: ATTEND Nurse Practitioner
DX: M85.89 Other specified disorders of bone density and structure, multiple sites (principal); Z78.0 Asymptomatic menopausal state

== ENCOUNTER 2022-02-22 08:00 | Outpatient (CLI) | payer MEDICARE, OTHER ==
[2022-02-23 17:00] LABS: BILIRUBIN,URINE NEGATIVE (NEGATIVE); GLUCOSE, URINE (UA) NEGATIVE (NEGATIVE); KETONES,URINE (UA) NEGATIVE (NEGATIVE); LEUKOCYTE ESTERASE, URINE LARGE (NEGATIVE); NITRITE,URINE POSITIVE (NEGATIVE); OCCULT BLOOD,URINE MODERATE (NEGATIVE); PROTEIN,URINE TRACE mg/dL (NEGATIVE); UROBILINOGEN,URINE 0.2 (NORMAL) E.U./dL (NORMAL)
[2022-02-23 17:03] LABS: CLARITY,URINE CLOUDY (CLEAR)
[2022-02-23 17:34] LABS: BACTERIA,URINE Many /HPF (None Seen); SQUAMOUS EPITHELIAL CELL,UR FEW Squamous (<= Few); WBC CLUMPS,URINE PRESENT; WBC,URINE >25 /HPF (0-5)
== END 2022-02-22 23:59 | disposition home or self-care (01) ==
LOC: LAB.WC 08:00
PROVIDERS: ATTEND Nurse Practitioner
DX: R30.0 Dysuria (principal)
CPT/HCPCS: 81001; 81002; 87086; 87181

== ENCOUNTER 2022-03-22 07:58 | Emergency (ER) | payer MEDICARE, OTHER ==
[2022-03-22 09:21] LABS: BASOPHILS % (AUTO) 0.2 %; EOSINOPHILS % (AUTO) 0.3 %; HCT - HEMATOCRIT 39.4 % (37.0-47.0); HGB - HEMOGLOBIN 13.1 g/dL (12.0-16.0); LYMPHOCYTES # (AUTO) 1.4 10^3/uL (1.5-3.5); LYMPHOCYTES % (AUTO) 11.8 %; MEAN CORPUSCULAR HEMOGLOBIN 32.9 pg (27.0-31.0); MEAN CORPUSCULAR HGB CONC 33.2 g/dL (32.0-36.0); MEAN PLATELET VOLUME 9.4 fL (7.9-10.8); MONOCYTES # (AUTO) 1.1 10^3/uL (0.0-1.0); MONOCYTES % (AUTO) 9.3 %; NEUTROPHILS % (AUTO) 78.1 %; PLT - PLATELET COUNT 210 10^3/uL (130-450); RED BLOOD COUNT 3.98 10^6/uL (4.20-5.40); RED CELL DISTRIBUTION WIDTH 12.1 % (12.0-15.0); WHITE BLOOD COUNT 11.5 x10^3/uL (4.8-10.8)
[2022-03-22 09:34] LABS: ALBUMIN 3.7 g/dL (3.2-5.5); ALBUMIN/GLOBULIN RATIO 1.3 (1.0-2.2); BILIRUBIN,TOTAL 0.9 mg/dL (0.2-1.0); CALCIUM 8.9 mg/dL (8.5-10.3); CREATININE 0.8 mg/dL (0.4-1.0); POTASSIUM 4.1 mmol/L (3.5-5.0); TOTAL PROTEIN 6.5 g/dL (6.7-8.2)
[2022-03-22 09:43] LABS: INR 1.2 (0.8-1.2); PT - PROTHROMBIN TIME 13.4 secs (9.9-12.6)
[2022-03-22] MEDS ORDERED: SODIUM CHLORIDE 0.9% 1,000 ML IV STA (10:38)
[2022-03-22] MEDS ORDERED: iohexoL-300 100 ML VIAL ONE (10:50)
--- NOTE | 2022-03-22 12:35 | CT Report ---
PROCEDURE: ANGIO ABDOMEN/PELVIS W INDICATIONS: GI bleed CONTRAST: 100 ml Omnipaque 300 TECHNIQUE: After the administration of intravenous contrast, 2.5 mm thick sections acquired from the diaphragm t o the symphysis. 10 mm maximum-intensity projection (MIP) reformats were then acquired. For radiati on dose reduction, the following was used: automated exposure control, adjustment of mA and/or kV ac cording to patient size. COMPARISON: CT IVP dated 05/09/2015 FINDINGS: Image quality: Excellent. Aorta: Patent without stenosis, aneurysm, or dissection. Mesenteric arteries: Mild to moderate celiac stenosis secondary to the arcuate ligament impression. S MA, MIKA, and bilateral renal arteries are patent. There is no acute extravasation identified and the bowel today no acute hemorrhage is seen. Right pelvic arteries: Widely patent Left pelvic arteries: Widely patent Extravascular soft tissues: Lung bases are clear. Heart size is normal. Liver and spleen are feliz l in size and enhancement. Gallbladder is unremarkable without calcified gallstones.. Biliary syste m is non dilated. Pancreas enhances normally. No adrenal nodules. Kidneys are normal in size and e nhancement, without hydronephrosis. There is sigmoid diverticulosis. There is edematous change presen t in the distal sigmoid and proximal rectum with inflammatory change in the surrounding fat. Findings most likely represent acute diverticulitis. There is a small amount of subjacent free fluid. No free fluid or air. No retroperitoneal or mesenteric adenopathy. No ventral hernias. No suspicious bony lesions. No vertebral body compression fractures. Uterus is surgically absent. There is lumbar deg enerative change. There is severe canal stenosis at L3-L4. IMPRESSION: 1. No evidence of acute hemorrhage. 2. Findings are consistent with acute diverticulitis of the distal sigmoid/proximal rectum. 3. Incidental note made of severe canal stenosis at L3-L4. Reviewed by: Jose Zhong MD on 03/22/2022 12:33 PM PST Approved by: Jose Zhong MD on 03/22/2022 12:33 PM PST Station ID: [id number]
[2022-03-22] MEDS ORDERED: AMOX/CLAV 875 MG/125 MG TABLET PO STA (12:56)
--- NOTE | 2022-03-22 13:30 | ED Physician Documentation ---
PD HPI ABD PAIN - Stated complaint Stated Complaint: DIARRHEA - Chief complaint Chief Complaint: Abd Pain - History obtained from History obtained from: Patient - Additional information Additional information: Patient is an 81-year-old female presenting for evaluation of left lower quadrant pain and blood and mucus in her stool since this morning. Last night she ate [place] Citizen food which included a canned sauce. Her ate the same thing and is not having any symptoms. She is on Eliquis. She reports that her stools were blood-streaked and mucousy but otherwise normal in color.She denies vomiting, chest pain, difficulty breathing, dizziness or syncope. She had 2 episodes this morning. Review of Systems Constitutional: denies: Fever Cardiac: denies: Chest pain / pressure Respiratory: denies: Dyspnea GI: reports: Abdominal Pain, Diarrhea. 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 HEENT: Tonsil/Adenoidectomy - Present Medications Home Medications: Ambulatory Orders Medication Instructions Recorded Confirmed Diclofenac Sodium [Voltaren] 5 g TP QID PRN 01/26/13 07/15/16 Gabapentin 100 - 300 mg PO QPM 02/13/14 07/15/16 Dabigatran Etexilate Mesylate 150 mg PO BID 05/17/16 07/15/16 [Pradaxa] Budesonide/Formoterol Fumarate 2 puffs INH BID 07/15/16 07/15/16 [Symbicort 160-4.5 Mcg Inhaler] Diltiazem HCl [Cartia Xt] 120 mg PO DAILY 07/15/16 07/15/16 cephALEXin [Keflex] 500 mg PO BID #4 capsule 07/16/16 Nitrofurantoin Monohyd/M-Cryst 100 mg PO BID #10 capsule 06/29/18 [Macrobid 100 mg Capsule] traZODone [Desyrel] 50 mg PO HS #30 tablet 06/29/18 Amox/Clav 875/125 [Augmentin] 1 each PO Q12H #14 tablet 03/22/22 - Allergies Allergies/Adverse Reactions: Allergies Allergy/AdvReac Type Severity Reaction Status Date / Time adhesive Allergy Unknown Verified 04/22/21 13:42 mold Allergy Unknown Verified 04/22/21 13:42 Yeast Allergy Unknown Verified 04/22/21 13:42 - Social History Does the pt smoke?: No Smoking Status: Never smoker Does the pt drink ETOH?: Yes Does the pt have substance abuse?: No - Immunizations Immunizations are current?: Yes - POLST Patient has POLST: Yes PD ED PE NORMAL - General General: Alert and oriented X 3, No acute distress, Well developed/nourished - HEENT HEENT: Atraumatic, Moist mucous membranes - Neck Neck: Supple, no meningeal sign - Cardiac Cardiac: RRR, No murmur - Respiratory Respiratory: No respiratory distress, Clear bilaterally - Abdomen Abdomen: Soft, Non distended, Other (Left lower quadrant tenderness to palpation; No rebound, no guarding, no hernia or mass) - Rectal Rectal: Other (Tire Wrapper present, brown-colored stool) - Derm Derm: Warm and dry - Extremities Extremities: No edema Results - Vitals Vitals: Vital Signs - 24 hr 03/22/22 03/22/22 08:17 13:37 Temperature 36.5 C 36.5 C Heart Rate 67 65 Respiratory 16 16 Rate Blood Pressure 112/56 L 115/61 O2 Saturation 97 98 Oxygen O2 Source Room air - Labs Labs: Microbiology 03/22/22 10:30 Occult Blood - Final Stool Laboratory Tests 03/22/22 03/22/22 03/22/22 09:15 09:15 09:15 WBC 11.5 H RBC 3.98 L Hgb 13.1 Hct 39.4 MCV 99.0 MCH 32.9 H MCHC 33.2 RDW 12.1 Plt Count 210 MPV 9.4 Neut # (Auto) 9.0 H Lymph # (Auto) 1.4 L [place] # (Auto) 1.1 H Eos # (Auto) 0.0 Baso # (Auto) 0.0 Absolute Nucleated RBC 0.00 Nucleated RBC % 0.0 PT 13.4 H INR 1.2 Sodium Potassium Chloride Carbon Dioxide Anion Gap BUN Creatinine Estimated GFR (MDRD) Glucose Calcium Total Bilirubin AST ALT Alkaline Phosphatase Total Protein Albumin Globulin Albumin/Globulin Ratio Lipase Blood Type A POSITIVE Blood Type Recheck Antibody Screen NEGATIVE 03/22/22 03/22/22 09:15 10:10 WBC RBC Hgb Hct MCV MCH MCHC RDW Plt Count MPV Neut # (Auto) Lymph # (Auto) [place] # (Auto) Eos # (Auto) Baso # (Auto) Absolute Nucleated RBC Nucleated RBC % PT INR Sodium 136 Potassium 4.1 Chloride 103 Carbon Dioxide 26 Anion Gap 7.0 BUN 15 Creatinine 0.8 Estimated GFR (MDRD) 69 L Glucose 114 H Calcium 8.9 Total Bilirubin 0.9 AST 18 ALT 16 Alkaline Phosphatase 45 Total Protein 6.5 L Albumin 3.7 Globulin 2.8 Albumin/Globulin Ratio 1.3 Lipase 41 Blood Type Blood Type Recheck A POSITIVE Antibody Screen PD MEDICAL DECISION MAKING - ED course Complexity details: reviewed results, re-evaluated patient, d/w patient ED course: Patient presenting for evaluation of blood in her stools and left lower quadrant abdominal pain. Her vital signs are stable. Her abdominal exam has tenderness to the left lower quadrant but is otherwise benign with no signs of peritonitis. Her rectal exam demonstrates brown-colored stool which is Hemoccult negative. Her labs are reassuring. Her CT scan demonstrates diverticulitis. Discussed treatment plan. She is tolerating p.o. and her pain is well controlled. Patient is counseled on need for close follow-up with her primary care doctor as well as concerning symptoms to return for. Departure - Departure Disposition: 01 Home, Self Care Clinical Impression: Diverticula of colon Condition: Stable Instructions: ED Diverticulitis Prescriptions: Amox/Clav 875/125 [Augmentin] 1 each PO Q12H #14 tablet Comments: You have inflammation in your colon called diverticulitis. I started you on antibiotic called Augmentin and sent this prescription to [facility] in [place]. Please make sure to complete the course of the antibiotic. You can resume your Eliquis.Please have close follow-up with your primary care doctor.You have any worsening symptoms such as increased pain, dizziness, any concerns consider return to the emergency department. Discharge Date/Time: 03/22/22 13:39
[2022-03-22 13:38] VITALS: BP 115/61
[2022-03-23] MEDS ORDERED: iohexoL-300 100 ML VIAL IVP ONE (13:34)
== END 2022-03-22 13:39 | disposition home or self-care (01) ==
LOC: ED 07:58
DX: K57.32 Diverticulitis of large intestine without perforation or abscess without bleeding (principal); I50.9 Heart failure, unspecified; Z79.01 Long term (current) use of anticoagulants
CPT/HCPCS: 36415; 74174; 80053; 82272; 83690; 85025; 85610; 86850; 86900; 86901; 99284; A9270; Q9967

== ENCOUNTER 2022-04-19 11:23 | Outpatient (CLI) | payer MEDICARE, OTHER | END 2022-04-19 11:24 | disposition home or self-care (01) | LOC: LAB.R 11:23 | PROVIDERS: ATTEND Nurse Practitioner | DX: K92.1 Melena (principal) ==

== ENCOUNTER 2022-05-04 12:54 | Outpatient (CLI) | payer MEDICARE, OTHER ==
[2022-05-04 13:09] LABS: FECAL OCCULT BLOOD (FIT) NEGATIVE (NEGATIVE)
== END 2022-05-04 12:55 | disposition home or self-care (01) ==
LOC: LAB 12:54
PROVIDERS: ATTEND Nurse Practitioner
DX: K92.1 Melena (principal)
CPT/HCPCS: 82274

== ENCOUNTER 2022-12-07 08:31 | Outpatient (CLI) | payer MEDICARE, OTHER ==
[2022-12-07 08:50] LABS: BASOPHILS % (AUTO) 0.4 %; EOSINOPHILS # (AUTO) 0.1 10^3/uL (0.0-0.7); EOSINOPHILS % (AUTO) 1.1 %; HCT - HEMATOCRIT 44.4 % (37.0-47.0); HGB - HEMOGLOBIN 14.8 g/dL (12.0-16.0); LYMPHOCYTES # (AUTO) 2.2 10^3/uL (1.5-3.5); LYMPHOCYTES % (AUTO) 39.9 %; MEAN CORPUSCULAR HEMOGLOBIN 32.6 pg (27.0-31.0); MEAN CORPUSCULAR HGB CONC 33.3 g/dL (32.0-36.0); MEAN CORPUSCULAR VOLUME 97.8 fL (81.0-99.0); MONOCYTES # (AUTO) 0.8 10^3/uL (0.0-1.0); MONOCYTES % (AUTO) 13.8 %; NEUTROPHILS # (AUTO) 2.4 10^3/uL (1.5-6.6); NEUTROPHILS % (AUTO) 44.4 %; PLT - PLATELET COUNT 245 10^3/uL (130-450); RED BLOOD COUNT 4.54 10^6/uL (4.20-5.40); RED CELL DISTRIBUTION WIDTH 12.1 % (12.0-15.0); WHITE BLOOD COUNT 5.4 x10^3/uL (4.8-10.8)
[2022-12-07 09:08] LABS: ALBUMIN 3.9 g/dL (3.2-5.5); ALBUMIN/GLOBULIN RATIO 1.4 (1.0-2.2); ALKALINE PHOSPHATASE 53 IU/L (42-121); ALT ALANINE AMINOTRANSFERASE 14 IU/L (10-60); AST ASPARTATE AMINOTRANSFERASE 16 IU/L (10-42); BILIRUBIN,TOTAL 0.4 mg/dL (0.2-1.0); BUN - BLOOD UREA NITROGEN 12 mg/dL (6-20); CALCIUM 9.4 mg/dL (8.5-10.3); CARBON DIOXIDE - CO2 30 mmol/L (21-32); CHLORIDE 103 mmol/L (101-111); CHOL/HDL RATIO 2.9 (<4.4); CHOLESTEROL 171 mg/dL; CREATININE 0.8 mg/dL (0.6-1.3); GFR - MDRD 69 (>89); GLUCOSE 109 mg/dL (74-104); HDL CHOLESTEROL 59 mg/dL; LDL CHOLESTEROL,CALCULATED 90 mg/dL; LDL/HDL RATIO 1.5 (<4.4); POTASSIUM 4.3 mmol/L (3.5-4.5); SODIUM 137 mmol/L (135-145); TOTAL PROTEIN 6.7 g/dL (6.4-8.9); TRIGLYCERIDES 108 mg/dL (48-352); VLDL CHOLESTEROL 22 mg/dL
[2022-12-07 09:30] LABS: THYROID STIMULATING HORMONE 1.12 uIU/mL (0.34-5.60)
== END 2022-12-07 08:32 | disposition home or self-care (01) ==
LOC: LAB 08:31
PROVIDERS: ATTEND Family Medicine
DX: R40.4 Transient alteration of awareness (principal); J47.9 Bronchiectasis, uncomplicated; I10 Essential (primary) hypertension; I48.0 Paroxysmal atrial fibrillation; Z79.01 Long term (current) use of anticoagulants; M54.50 Low back pain, unspecified; G89.29 Other chronic pain
CPT/HCPCS: 36415; 80053; 80061; 83721; 84443; 85025

== ENCOUNTER 2023-05-12 07:43 | Outpatient (CLI) | payer MEDICARE, OTHER ==
[2023-05-12 08:14] LABS: CALCIUM 9.4 mg/dL (8.5-10.3); CREATININE 0.8 mg/dL (0.6-1.3); POTASSIUM 4.1 mmol/L (3.5-4.5)
[2023-05-12 11:02] LABS: ESTIMATED AVERAGE GLUCOSE 108 mg/dL (70-100); HEMOGLOBIN A1c% 5.4 % (4.27-6.07)
== END 2023-05-12 07:44 | disposition home or self-care (01) ==
LOC: LAB 07:43
PROVIDERS: ATTEND Family Medicine
DX: R73.9 Hyperglycemia, unspecified (principal)
CPT/HCPCS: 36415; 80048; 83036

== ENCOUNTER 2023-05-26 08:00 | Outpatient (CLI) | payer MEDICARE, OTHER ==
[2023-05-26 18:54] LABS: BILIRUBIN,URINE NEGATIVE (NEGATIVE); GLUCOSE, URINE (UA) NEGATIVE (NEGATIVE); KETONES,URINE (UA) NEGATIVE (NEGATIVE); LEUKOCYTE ESTERASE, URINE SMALL (NEGATIVE); NITRITE,URINE NEGATIVE (NEGATIVE); OCCULT BLOOD,URINE TRACE-INTA (NEGATIVE); PH,URINE 6.5 PH (5.0-7.5); PROTEIN,URINE NEGATIVE (NEGATIVE); UROBILINOGEN,URINE 0.2 (NORMAL) E.U./dL (NORMAL)
[2023-05-26 19:15] LABS: BACTERIA,URINE Few /HPF (None Seen); CLARITY,URINE SL. CLOUDY (CLEAR); SQUAMOUS EPITHELIAL CELL,UR FEW Squamous (<= Few); WBC CLUMPS,URINE PRESENT
== END 2023-05-26 23:59 | disposition home or self-care (01) ==
LOC: LAB.WC 08:00
PROVIDERS: ATTEND Nurse Practitioner
DX: N30.90 Cystitis, unspecified without hematuria (principal)
CPT/HCPCS: 81001; 87077; 87086; 87181

== ENCOUNTER 2023-10-21 12:33 | Outpatient (CLI) | payer MEDICARE ==
[2023-10-21 12:42] LABS: BASOPHILS % (AUTO) 0.4 %; EOSINOPHILS # (AUTO) 0.1 10^3/uL (0.0-0.7); EOSINOPHILS % (AUTO) 1.4 %; HCT - HEMATOCRIT 43.6 % (37.0-47.0); HGB - HEMOGLOBIN 14.1 g/dL (12.0-16.0); LYMPHOCYTES # (AUTO) 1.8 10^3/uL (1.5-3.5); LYMPHOCYTES % (AUTO) 23.4 %; MEAN CORPUSCULAR HEMOGLOBIN 32.4 pg (27.0-31.0); MEAN CORPUSCULAR HGB CONC 32.3 g/dL (32.0-36.0); MEAN CORPUSCULAR VOLUME 100.2 fL (81.0-99.0); MEAN PLATELET VOLUME 9.4 fL (7.9-10.8); MONOCYTES # (AUTO) 0.7 10^3/uL (0.0-1.0); MONOCYTES % (AUTO) 8.3 %; NEUTROPHILS # (AUTO) 5.2 10^3/uL (1.5-6.6); NEUTROPHILS % (AUTO) 66.1 %; PLT - PLATELET COUNT 237 10^3/uL (130-450); RED BLOOD COUNT 4.35 10^6/uL (4.20-5.40); RED CELL DISTRIBUTION WIDTH 12.1 % (12.0-15.0); WHITE BLOOD COUNT 7.8 x10^3/uL (4.8-10.8)
--- NOTE | 2023-10-21 14:34 | XRAY Report ---
PROCEDURE: Foot 3+V LT INDICATIONS: OSTEOARTHRITIS, LEFT FOOT TECHNIQUE: 3 views of the foot were acquired. COMPARISON: None. FINDINGS: Bones: Mildly decreased mineralization. Mildly displaced third metatarsal distal diaphyseal fracture. Nondisplaced fourth metatarsal neck fracture cannot be excluded, questionably seen on the oblique vi ew. Elsewhere, there are degenerative changes at the first MTP and first IP joint and mild hammertoe deformities 2 through 4. Small plantar calcaneal spur and mild TMT joint degeneration. Soft tissues: No tibiotalar joint effusion. Achilles tendon appears normal. Mild vascular calcific ation. IMPRESSION: Mildly displaced third distal metatarsal fracture. Possible nondisplaced fourth metatarsal neck fracture. Mild degeneration. Reviewed by: Maryellen Izaguirre MD on 10/21/2023 2:33 PM PDT Approved by: Maryellen Izaguirre MD on 10/21/2023 2:33 PM PDT Station ID: [id number]
== END 2023-10-21 12:34 | disposition home or self-care (01) ==
LOC: LAB 12:33
PROVIDERS: ATTEND Physician Assistant
DX: M19.072 Primary osteoarthritis, left ankle and foot (principal); S92.332A Displaced fracture of third metatarsal bone, left foot, initial encounter for closed fracture
CPT/HCPCS: 36415; 84550; 85025

== ENCOUNTER 2023-11-04 08:00 | Outpatient (CLI) | payer MEDICARE | END 2023-11-04 23:59 | disposition home or self-care (01) | LOC: LAB 08:00 | PROVIDERS: ATTEND Physician Assistant | DX: N39.8 Other specified disorders of urinary system (principal) | CPT/HCPCS: 87086; 87181 ==

== ENCOUNTER 2023-11-23 11:02 | Outpatient (CLI) | payer MEDICARE ==
--- NOTE | 2023-11-25 09:59 | XRAY Report ---
PROCEDURE: Foot 3+V LT (Weight Bearing) INDICATIONS: FX OF UNSPEC METATARSAL BONE L FOOT TECHNIQUE: 3 views of the foot were acquired. COMPARISON: X-ray foot 10/21/2023. FINDINGS: Bones: Large amount of callus formation seen adjacent to the third metatarsal fracture. No fourth met atarsal fracture seen. Soft tissues: Mild tissue swelling of the forefoot IMPRESSION: Large amount of callus formation around the third metatarsal fracture Reviewed by: Trevin Banks MD on 11/25/2023 9:57 AM PDT Approved by: Trevin Banks MD on 11/25/2023 9:57 AM PDT Station ID: [id number]
== END 2023-11-23 11:03 | disposition home or self-care (01) ==
LOC: DI 11:02
PROVIDERS: ATTEND Physician Assistant Surgical
DX: S92.332D Displaced fracture of third metatarsal bone, left foot, subsequent encounter for fracture with routine healing (principal)

== ENCOUNTER 2023-11-24 08:00 | Outpatient (CLI) | payer MEDICARE, OTHER ==
[2023-11-24 13:57] LABS: BILIRUBIN,URINE NEGATIVE (NEGATIVE); CLARITY,URINE CLOUDY (CLEAR); GLUCOSE, URINE (UA) NEGATIVE (NEGATIVE); KETONES,URINE (UA) NEGATIVE (NEGATIVE); LEUKOCYTE ESTERASE, URINE LARGE (NEGATIVE); NITRITE,URINE POSITIVE (NEGATIVE); OCCULT BLOOD,URINE TRACE-INTA (NEGATIVE); PROTEIN,URINE NEGATIVE (NEGATIVE); UROBILINOGEN,URINE 1 (NORMAL) E.U./dL (NORMAL)
[2023-11-24 14:10] LABS: BACTERIA,URINE Moderate /HPF (None Seen); RBC,URINE 0-5 /HPF (0-5); SQUAMOUS EPITHELIAL CELL,UR FEW Squamous (<= Few); WBC CLUMPS,URINE PRESENT; WBC,URINE >25 /HPF (0-5)
== END 2023-11-24 23:59 | disposition home or self-care (01) ==
LOC: LAB.WC 08:00
PROVIDERS: ATTEND Obstetrics & Gynecology
DX: N39.8 Other specified disorders of urinary system (principal)
CPT/HCPCS: 81001; 81002; 87086; 87181

== ENCOUNTER 2023-12-29 15:15 | Outpatient (CLI) | payer MEDICARE, OTHER ==
--- NOTE | 2023-12-29 16:37 | DEXA Report ---
PROCEDURE: Dexa Spine and/or Hip INDICATIONS: POST MENOPAUSAL TECHNIQUE: Dual energy x-ray absorptiometry (DEXA) was performed in the regions detailed below. COMPARISON: 09/08/2021 FINDINGS: Lumbar Spine: Bone Mineral Density 0.984 g/cm/cm,T score -1.6. Previously -1.8 Left Femoral Neck: Bone Mineral Density 0.847 g/cm/cm, T score -1.4. Previously -1.6 Left Total Hip: Bone Mineral Density 0.722 g/cm/cm,T score -2.3. Previously -2.3 (T score greater or equal to -1.0: NORMAL) (T score from -1.1 to -2.4: OSTEOPENIA) (T score less than or equal to -2.5 to: OSTEOPOROSIS) IMPRESSION: Osteopenia Patients with diagnosis of osteoporosis or osteopenia should have regular bone mineral density assess ment. For those eligible for Medicare, routine testing is allowed once every 2 years. Testing frequ ency can be increased for patients who have rapidly progressing disease or for those who are receivin g medical therapy to restore bone mass. Reviewed by: Mukesh Sprague MD on 12/29/2023 3:35 PM JOSUE Approved by: Mukesh Sprague MD on 12/29/2023 3:35 PM AKJOSH Station ID: [id number]
== END 2023-12-29 15:16 | disposition home or self-care (01) ==
LOC: DI 15:15
PROVIDERS: ATTEND Family Medicine
DX: M85.89 Other specified disorders of bone density and structure, multiple sites (principal); Z78.0 Asymptomatic menopausal state